=== PATIENT | female | born 1945 | race Caucasian/White ===

== ENCOUNTER → 2016-08-05 | Outpatient (REF) | payer OTHER ==
[2016-08-05 12:42] LABS: BASO # 0.1 K/mm3 (0.0-0.2); EOS # 0.4 K/mm3 (0.0-0.50); EOS % 4.8 % (0.0-3.0); LARGE UNSTAINED CELL # 0.2 K/mm3 (0.0-0.4); LARGE UNSTAINED CELL % 2.6 % (0.0-4.0); LYMPH # 1.4 K/mm3 (1.5-4.5); LYMPH % 19.7 % (24.0-44.0); MEAN CORPUSCULAR HEMOGLOBIN 29.1 pg (27.0-33.0); MEAN CORPUSCULAR HGB CONC 32.8 g/dl (32.0-36.5); MEAN CORPUSCULAR VOLUME 88.8 fl (80.0-96.0); MONO # 0.5 K/mm3 (0.0-0.8); MONO % 6.3 % (0.0-5.0); NEUTROPHILS # 4.8 K/mm3 (1.8-7.7); NEUTROPHILS % 65.6 % (36.0-66.0); PLATELET COUNT, AUTOMATED 189 k/mm3 (150-450); RED CELL DISTRIBUTION WIDTH 13.8 % (11.5-14.5); WHITE BLOOD COUNT 7.3 K/mm3 (4.0-10.0)
[2016-08-05 13:48] LABS: FOLATE 23.8 NG/ML
[2016-08-05 13:53] LABS: ALBUMIN 3.4 GM/DL (3.2-5.2); ALBUMIN/GLOBULIN RATIO 0.87 (1.00-1.93); BILIRUBIN,TOTAL 0.4 MG/DL (0.2-1.0); CALCIUM LEVEL 8.9 MG/DL (8.8-10.2); CREATININE FOR GFR 1.71 MG/DL (0.55-1.02); GLOMERULAR FILTRATION RATE 31.2 (>39); PERCENT SATURATION 39.3 % (13.2-37.4); POTASSIUM SERUM 4.6 MEQ/L (3.5-5.1); TOTAL PROTEIN 7.3 GM/DL (6.4-8.2)
== END ==
LOC: M SFHCADAM 11:22
PROVIDERS: ATTEND Physician Assistant Medical
DX: N18.3 Chronic kidney disease, stage 3 (moderate) (principal); E11.9 Type 2 diabetes mellitus without complications; E78.5 Hyperlipidemia, unspecified; E03.9 Hypothyroidism, unspecified; E55.9 Vitamin D deficiency, unspecified

== ENCOUNTER 2018-01-15 11:04 | Emergency (ER) | payer OTHER ==
[2018-01-15] MEDS: NS 1,000 ML IV ×2 (11:40→12:54)
[2018-01-15 11:41] LABS: HEMATOCRIT 31.6 % (36.0-47.0); HEMOGLOBIN 10.3 g/dl (12.0-15.5); MEAN CORPUSCULAR HEMOGLOBIN 28.9 pg (27.0-33.0); MEAN CORPUSCULAR HGB CONC 32.6 g/dl (32.0-36.5); MEAN CORPUSCULAR VOLUME 88.8 fl (80.0-96.0); PLATELET COUNT, AUTOMATED 211 10^3/uL (150-450); RED BLOOD COUNT 3.56 10^6/uL (4.00-5.40); RED CELL DISTRIBUTION WIDTH 13.1 % (11.5-14.5); WHITE BLOOD COUNT 9.5 10^3/uL (4.0-10.0)
[2018-01-15 11:43] LABS: ADD MANUAL DIFFER YES; DIFF SLIDE NUMBER 221; POSITIVE DIFF POS FLAG; POSITIVE MORPH POS FLAG
[2018-01-15 11:59] LABS: INR 1.15; PROTHROMBIN TIME 14.9 SECONDS (12.1-14.4)
[2018-01-15 12:00] LABS: ANION GAP 13 MEQ/L (8-16); BLOOD UREA NITROGEN 31 MG/DL (7-18); CALCIUM LEVEL 8.7 MG/DL (8.8-10.2); CARBON DIOXIDE LEVEL 20 MEQ/L (21-32); CHLORIDE LEVEL 94 MEQ/L (98-107); CK-MB VALUE MASS 5.9 NG/ML (<3.6); CPK CREATINE PHOSPHOKINASE 94 U/L (26-192); CREATININE FOR GFR 2.05 MG/DL (0.55-1.30); GLOMERULAR FILTRATION RATE 25.2 (>39); MB/CK RELATIVE INDEX 6.27 (< OR =4); PARTIAL THROMBOPLASTIN TIME 27.6 SECONDS (25.4-37.6); POTASSIUM SERUM 4.3 MEQ/L (3.5-5.1); SODIUM LEVEL 127 MEQ/L (136-145)
[2018-01-15 12:02] LABS: GLUCOSE, FASTING 525 MG/DL (70-100); TROPONIN I 1.92 NG/ML (< 0.10)
[2018-01-15 12:09] LABS: ANISOCYTOSIS 1+; BANDS 2 % (< 11); LYMPHOCYTES 1 % (16-52); MONOCYTES 3 % (0-8); NEUTROPHILS 94 % (35-75); PLATELET ESTIMATE NORMAL (NORMAL)
[2018-01-15] MEDS ORDERED: HumuLIN R (REGULAR) INSULIN (NovoLIN R) **100U/ML** PER UNIT As Ordered (12:31)
[2018-01-15] MEDS: HumuLIN R (REGULAR) INSULIN (NovoLIN R) **100U/ML** PER UNIT IV (12:32)
[2018-01-15] MEDS ORDERED: HEPARIN 25,000 UNITS/250 ML D5W BAG (100 UNITS/ML) As Ordered (12:46)
[2018-01-15] MEDS ORDERED: HEPARIN SOD (PORCINE) 5000 UNITS/ML VIAL As Ordered (12:46)
[2018-01-15] MEDS: CLOPIDOGREL 300 MG TAB (PLAVIX) PO (12:52)
[2018-01-15] MEDS: HEPARIN SOD (PORCINE) 5000 UNITS/ML VIAL IV (12:52)
[2018-01-15] MEDS: HEPARIN DRIP 25,000 UNITS in APPROPRIATE DILUENT 1 EA IV (12:52)
[2018-01-15 13:50] LABS: BEDSIDE GLUCOSE 388 MG/DL (83-110)
== END 2018-01-15 13:51 | disposition short-term general hospital (02) ==
LOC: M ED 11:04
DX: I21.4 Non-ST elevation (NSTEMI) myocardial infarction (principal); N18.3 Chronic kidney disease, stage 3 (moderate); I95.9 Hypotension, unspecified; R53.1 Weakness; E11.22 Type 2 diabetes mellitus with diabetic chronic kidney disease; I12.9 Hypertensive chronic kidney disease with stage 1 through stage 4 chronic kidney disease, or unspecified chronic kidney disease; E78.5 Hyperlipidemia, unspecified; Z86.79 Personal history of other diseases of the circulatory system; D63.1 Anemia in chronic kidney disease; D50.9 Iron deficiency anemia, unspecified; Z79.899 Other long term (current) drug therapy
CPT/HCPCS: 71045

== ENCOUNTER → 2018-02-02 | Outpatient (REF) | payer OTHER ==
[2018-02-04 10:01] LABS: ANION GAP 9 MEQ/L (8-16); BLOOD UREA NITROGEN 17 MG/DL (7-18); CALCIUM LEVEL 8.4 MG/DL (8.8-10.2); CARBON DIOXIDE LEVEL 23 MEQ/L (21-32); CHLORIDE LEVEL 108 MEQ/L (98-107); CREATININE FOR GFR 1.07 MG/DL (0.55-1.30); GLOMERULAR FILTRATION RATE 53.4 (>39); GLUCOSE, FASTING 157 MG/DL (70-100); POTASSIUM SERUM 4.3 MEQ/L (3.5-5.1); SODIUM LEVEL 140 MEQ/L (136-145)
== END ==
LOC: M LABDRWAD 09:41
DX: N18.3 Chronic kidney disease, stage 3 (moderate) (principal)
CPT/HCPCS: 80048

== ENCOUNTER → 2018-02-17 | Outpatient (REF) | payer OTHER ==
[2018-02-17 19:25] LABS: BASO # 0.1 10^3/uL (0.0-0.2); BASO % 0.6 % (0.0-1.0); EOS # 0.2 10^3/uL (0.0-0.50); EOS % 2.8 % (0.0-3.0); HEMATOCRIT 26.8 % (36.0-47.0); HEMOGLOBIN 8.3 g/dl (12.0-15.5); IMMATURE GRANULOCYTE % 0.5 % (0-3.0); LYMPH # 0.8 10^3/uL (1.5-4.5); LYMPH % 9.4 % (24.0-44.0); MEAN CORPUSCULAR HEMOGLOBIN 28.1 pg (27.0-33.0); MEAN CORPUSCULAR VOLUME 90.8 fl (80.0-96.0); MONO # 0.4 10^3/uL (0.0-0.8); MONO % 4.8 % (0.0-5.0); NEUTROPHILS # 6.8 10^3/uL (1.8-7.7); NEUTROPHILS % 81.9 % (36.0-66.0); PLATELET COUNT, AUTOMATED 261 10^3/uL (150-450); RED BLOOD COUNT 2.95 10^6/uL (4.00-5.40); RED CELL DISTRIBUTION WIDTH 15.5 % (11.5-14.5); WHITE BLOOD COUNT 8.3 10^3/uL (4.0-10.0)
[2018-02-17 19:54] LABS: ESTIMATED AVERAGE GLUCOSE 280 MG/DL (60-110); HEMOGLOBIN A1c 11.4 %
[2018-02-17 20:18] LABS: ALBUMIN/GLOBULIN RATIO 0.56 (1.00-1.93); ALKALINE PHOSPHATASE 102 U/L (45-117); ALT/SGPT 15 U/L (12-78); ANION GAP 7 MEQ/L (8-16); AST/SGOT 15 U/L (7-37); BILIRUBIN,TOTAL 0.2 MG/DL (0.2-1.0); BLOOD UREA NITROGEN 16 MG/DL (7-18); CALCIUM LEVEL 8.2 MG/DL (8.8-10.2); CARBON DIOXIDE LEVEL 25 MEQ/L (21-32); CHLORIDE LEVEL 112 MEQ/L (98-107); CREATININE FOR GFR 0.98 MG/DL (0.55-1.30); GLOMERULAR FILTRATION RATE 59.1 (>39); GLUCOSE, FASTING 134 MG/DL (70-100); POTASSIUM SERUM 3.6 MEQ/L (3.5-5.1); SODIUM LEVEL 144 MEQ/L (136-145); TOTAL PROTEIN 5.6 GM/DL (6.4-8.2)
== END ==
LOC: M SFHCADAM 11:41
DX: E11.22 Type 2 diabetes mellitus with diabetic chronic kidney disease (principal); N18.3 Chronic kidney disease, stage 3 (moderate); D63.8 Anemia in other chronic diseases classified elsewhere; E03.9 Hypothyroidism, unspecified
CPT/HCPCS: 84443

== ENCOUNTER → 2018-02-26 | Outpatient (REF) | payer OTHER ==
[2018-02-26 14:24] LABS: BASO # 0.1 10^3/uL (0.0-0.2); BASO % 0.7 % (0.0-1.0); EOS # 0.5 10^3/uL (0.0-0.50); EOS % 5.5 % (0.0-3.0); HEMATOCRIT 29.1 % (36.0-47.0); HEMOGLOBIN 9.2 g/dl (12.0-15.5); IMMATURE GRANULOCYTE % 0.2 % (0-3.0); LYMPH % 11.9 % (24.0-44.0); MEAN CORPUSCULAR HGB CONC 31.6 g/dl (32.0-36.5); MEAN CORPUSCULAR VOLUME 88.4 fl (80.0-96.0); MONO # 0.6 10^3/uL (0.0-0.8); NEUTROPHILS # 6.2 10^3/uL (1.8-7.7); NEUTROPHILS % 74.7 % (36.0-66.0); PLATELET COUNT, AUTOMATED 248 10^3/uL (150-450); RED BLOOD COUNT 3.29 10^6/uL (4.00-5.40); RED CELL DISTRIBUTION WIDTH 15.7 % (11.5-14.5); WHITE BLOOD COUNT 8.2 10^3/uL (4.0-10.0)
[2018-02-26 15:09] LABS: ALBUMIN 2.1 GM/DL (3.2-5.2); ALBUMIN/GLOBULIN RATIO 0.58 (1.00-1.93); ALKALINE PHOSPHATASE 105 U/L (45-117); ALT/SGPT 15 U/L (12-78); ANION GAP 9 MEQ/L (8-16); AST/SGOT 18 U/L (7-37); BILIRUBIN,TOTAL 0.2 MG/DL (0.2-1.0); BLOOD UREA NITROGEN 19 MG/DL (7-18); CALCIUM LEVEL 7.9 MG/DL (8.8-10.2); CARBON DIOXIDE LEVEL 28 MEQ/L (21-32); CHLORIDE LEVEL 105 MEQ/L (98-107); CREATININE FOR GFR 1.03 MG/DL (0.55-1.30); GLOMERULAR FILTRATION RATE 55.8 (>39); GLUCOSE, FASTING 161 MG/DL (70-100); MAGNESIUM LEVEL 1.2 MG/DL (1.8-2.4); NT-PRO BNP 2333 PG/ML (<125); POTASSIUM SERUM 3.7 MEQ/L (3.5-5.1); SODIUM LEVEL 142 MEQ/L (136-145); TOTAL PROTEIN 5.7 GM/DL (6.4-8.2)
== END ==
LOC: M LAB REF 12:39
DX: D50.0 Iron deficiency anemia secondary to blood loss (chronic) (principal); I50.42 Chronic combined systolic (congestive) and diastolic (congestive) heart failure; I11.0 Hypertensive heart disease with heart failure; R94.31 Abnormal electrocardiogram [ECG] [EKG]
CPT/HCPCS: 83735

== ENCOUNTER → 2018-04-06 | Outpatient (CLI) | payer OTHER | LOC: M RAD 12:49 | DX: N13.2 Hydronephrosis with renal and ureteral calculous obstruction (principal); N28.1 Cyst of kidney, acquired | CPT/HCPCS: 76775 ==

== ENCOUNTER 2018-05-01 10:58 | Inpatient (IN) | payer OTHER ==
[2018-05-01 12:00] LABS: HEMATOCRIT 29.4 % (36.0-47.0); HEMOGLOBIN 9.5 g/dl (12.0-15.5); MEAN CORPUSCULAR HEMOGLOBIN 27.9 pg (27.0-33.0); MEAN CORPUSCULAR HGB CONC 32.3 g/dl (32.0-36.5); MEAN CORPUSCULAR VOLUME 86.2 fl (80.0-96.0); PLATELET COUNT, AUTOMATED 356 10^3/uL (150-450); RED BLOOD COUNT 3.41 10^6/uL (4.00-5.40); RED CELL DISTRIBUTION WIDTH 15.5 % (11.5-14.5); WHITE BLOOD COUNT 11.1 10^3/uL (4.0-10.0)
[2018-05-01] MEDS: NS 500 ML IV ×2 (12:00→12:43)
[2018-05-01 12:05] LABS: ADD MANUAL DIFFER YES; DIFF SLIDE NUMBER 219; POSITIVE MORPH POS FLAG
[2018-05-01 12:12] LABS: BLOOD UREA NITROGEN 85 MG/DL (7-18); CREATININE FOR GFR 2.72 MG/DL (0.55-1.30); GLOMERULAR FILTRATION RATE 18.2 (>39); GLUCOSE, FASTING 168 MG/DL (70-100)
[2018-05-01 12:13] LABS: ALBUMIN 2.2 GM/DL (3.2-5.2); ALBUMIN/GLOBULIN RATIO 0.54 (1.00-1.93); ALKALINE PHOSPHATASE 92 U/L (45-117); ALT/SGPT 36 U/L (12-78); ANION GAP 20 MEQ/L (8-16); AST/SGOT 51 U/L (7-37); BILIRUBIN,DIRECT 0.2 MG/DL (0.0-0.2); BILIRUBIN,TOTAL 0.4 MG/DL (0.2-1.0); CALCIUM LEVEL 7.3 MG/DL (8.8-10.2); CARBON DIOXIDE LEVEL 21 MEQ/L (21-32); CHLORIDE LEVEL 96 MEQ/L (98-107); LIPASE 162 U/L (73-393); POTASSIUM SERUM 4.6 MEQ/L (3.5-5.1); SODIUM LEVEL 137 MEQ/L (136-145); TOTAL PROTEIN 6.3 GM/DL (6.4-8.2)
[2018-05-01 12:37] LABS: ATYPICAL LYMPH 4 % (0-5); BANDS 49 % (< 11); METAMYELOCYTES 1 % (0-0); MONOCYTES 15 % (0-8); NEUTROPHILS 31 % (35-75); PLATELET ESTIMATE NORMAL (NORMAL)
[2018-05-01 12:39] LABS: TOXIC VACUOLATION 1+
[2018-05-01 12:40] LABS: TOXIC GRANULATION 1+
[2018-05-01] MEDS: DILUENT IV (13:00)
[2018-05-01] MEDS: NS IV (13:00)
[2018-05-01 13:27] LABS: INR 1.12; PARTIAL THROMBOPLASTIN TIME 27.5 SECONDS (25.4-37.6); PROTHROMBIN TIME 14.5 SECONDS (12.1-14.4)
[2018-05-01 13:35] LABS: AMYLASE 90 U/L (25-115); CPK CREATINE PHOSPHOKINASE 78 U/L (26-192); MB/CK RELATIVE INDEX 8.72 (< OR =4); TROPONIN I < 0.02 NG/ML (< 0.10)
[2018-05-01 13:40] LABS: LACTIC ACID SEPSIS PROTOCOL 2.6 MMOL/L (0.4-2.0)
[2018-05-01] MEDS: ONDANSETRON 4MG/2ML VIAL (J2405) IV (14:01)
[2018-05-01] MEDS: PIPERACILLIN/TAZOBACTAM SOD 4.5 GM in D5W MINI-BAG PLUS 50 ML IV (14:20)
[2018-05-01] MEDS: NS 1,000 ML IV ×3 (14:27→21:33)
[2018-05-01] MEDS ORDERED: METOCLOPRAMIDE INJ 10MG/2ML VIAL (J2765) IV (14:30)
[2018-05-01] MEDS ORDERED: ONDANSETRON 4MG/2ML VIAL (J2405) IV (14:30)
[2018-05-01] MEDS: PANTOPRAZOLE 40MG INJ (PROTONIX) (C9113) IV (18:40)
[2018-05-01] MEDS: metroNIDAZOLE 500 MG in APPROPRIATE DILUENT 1 EA IV ×2 (18:40→23:05)
[2018-05-01] MEDS: PIPERACILLIN/TAZOBACTAM SOD 2.25 GM in D5W MINI-BAG PLUS 50 ML IV (21:07)
[2018-05-01] MEDS: HEPARIN SOD (PORCINE) 5000 UNITS/ML VIAL SC (21:07)
[2018-05-02] MEDS: MORPHINE 4 MG/ML 1ML VIAL/SYRINGE (J2270) IV (03:28)
[2018-05-02 04:48] LABS: HEMATOCRIT 29.1 % (36.0-47.0); HEMOGLOBIN 9.2 g/dl (12.0-15.5); MEAN CORPUSCULAR HEMOGLOBIN 27.7 pg (27.0-33.0); MEAN CORPUSCULAR HGB CONC 31.6 g/dl (32.0-36.5); MEAN CORPUSCULAR VOLUME 87.7 fl (80.0-96.0); PLATELET COUNT, AUTOMATED 280 10^3/uL (150-450); RED BLOOD COUNT 3.32 10^6/uL (4.00-5.40); RED CELL DISTRIBUTION WIDTH 15.6 % (11.5-14.5)
[2018-05-02 05:16] LABS: ALBUMIN 1.9 GM/DL (3.2-5.2); ALBUMIN/GLOBULIN RATIO 0.51 (1.00-1.93); ALKALINE PHOSPHATASE 76 U/L (45-117); ALT/SGPT 38 U/L (12-78); ANION GAP 19 MEQ/L (8-16); AST/SGOT 63 U/L (7-37); BILIRUBIN,TOTAL 0.4 MG/DL (0.2-1.0); BLOOD UREA NITROGEN 98 MG/DL (7-18); CALCIUM LEVEL 6.4 MG/DL (8.8-10.2); CARBON DIOXIDE LEVEL 16 MEQ/L (21-32); CHLORIDE LEVEL 105 MEQ/L (98-107); CREATININE FOR GFR 2.91 MG/DL (0.55-1.30); GLOMERULAR FILTRATION RATE 16.8 (>39); GLUCOSE, FASTING 148 MG/DL (70-100); SODIUM LEVEL 140 MEQ/L (136-145); TOTAL PROTEIN 5.6 GM/DL (6.4-8.2)
[2018-05-02] MEDS: HEPARIN SOD (PORCINE) 5000 UNITS/ML VIAL SC ×3 (05:47→21:13)
[2018-05-02] MEDS: PIPERACILLIN/TAZOBACTAM SOD 2.25 GM in D5W MINI-BAG PLUS 50 ML IV ×3 (05:48→21:13)
[2018-05-02] MEDS: NS 1,000 ML IV ×6 (06:20→22:30)
[2018-05-02] MEDS: metroNIDAZOLE 500 MG in APPROPRIATE DILUENT 1 EA IV (07:47)
[2018-05-02] MEDS: PANTOPRAZOLE 40MG INJ (PROTONIX) (C9113) IV (10:13)
[2018-05-02] MEDS: NYSTATIN 100,000 UNITS/GM TOPICAL PWD 15 GM TOP ×2 (10:17→21:13)
[2018-05-02] MEDS: CALCIUM GLUCONATE 1,000 MG in D5W MINI-BAG PLUS 100 ML IV (12:15)
[2018-05-02] MEDS ORDERED: GLUCAGON FOR INJ 1 MG VIAL (J1610) SC (13:30)
[2018-05-02] MEDS ORDERED: GLUCOSE 4 GM CHEW TABLET PO (13:30)
[2018-05-02 14:40] LABS: BEDSIDE GLUCOSE 137 MG/DL (83-110)
[2018-05-02] MEDS: HumaLOG INSULIN (NovoLOG) PER UNIT SC ×2 (14:50→18:00)
[2018-05-02] MEDS: ACETAMINOPHEN 500 MG TAB PO (15:00)
[2018-05-02] MEDS ORDERED: SODIUM CHLORIDE 0.9% 1000ML IV (16:45)
[2018-05-02 18:06] LABS: BEDSIDE GLUCOSE 81 MG/DL (83-110)
[2018-05-02 23:51] LABS: BEDSIDE GLUCOSE 62 MG/DL (83-110)
[2018-05-03] MEDS: NS 1,000 ML IV (00:12)
[2018-05-03 01:40] LABS: BEDSIDE GLUCOSE 72 MG/DL (83-110)
[2018-05-03 04:40] LABS: HEMATOCRIT 26.9 % (36.0-47.0); HEMOGLOBIN 8.3 g/dl (12.0-15.5); MEAN CORPUSCULAR HGB CONC 30.9 g/dl (32.0-36.5); MEAN CORPUSCULAR VOLUME 87.6 fl (80.0-96.0); PLATELET COUNT, AUTOMATED 235 10^3/uL (150-450); RED BLOOD COUNT 3.07 10^6/uL (4.00-5.40); RED CELL DISTRIBUTION WIDTH 15.3 % (11.5-14.5); WHITE BLOOD COUNT 8.6 10^3/uL (4.0-10.0)
[2018-05-03 04:44] LABS: ADD MANUAL DIFFER YES; DIFF SLIDE NUMBER 52; POSITIVE MORPH POS FLAG
[2018-05-03 04:45] LABS: IONIZED CALCIUM 3.3 MG/DL (4.5-5.3)
[2018-05-03 05:10] LABS: ALBUMIN 1.6 GM/DL (3.2-5.2); ANION GAP 15 MEQ/L (8-16); BLOOD UREA NITROGEN 85 MG/DL (7-18); CALCIUM LEVEL 5.2 MG/DL (8.8-10.2); CARBON DIOXIDE LEVEL 17 MEQ/L (21-32); CHLORIDE LEVEL 115 MEQ/L (98-107); CREATININE FOR GFR 2.65 MG/DL (0.55-1.30); GLOMERULAR FILTRATION RATE 18.7 (>39); GLUCOSE, FASTING 61 MG/DL (70-100); PHOSPHORUS LEVEL 3.9 MG/DL (2.5-4.9); SODIUM LEVEL 147 MEQ/L (136-145)
[2018-05-03 05:13] LABS: BANDS 4 % (< 11); LYMPHOCYTES 7 % (16-52); METAMYELOCYTES 1 % (0-0); MONOCYTES 5 % (0-8); NEUTROPHILS 83 % (35-75)
[2018-05-03 05:14] LABS: PLATELET ESTIMATE NORMAL (NORMAL)
[2018-05-03 05:15] LABS: ANISOCYTOSIS 1+; CRENATED RBC 1+
[2018-05-03 05:16] LABS: TOXIC GRANULATION 1+
[2018-05-03] MEDS: HumaLOG INSULIN (NovoLOG) PER UNIT SC ×3 (06:00→12:00)
[2018-05-03] MEDS: MAG SULF 1GM/100ML (MAG RUN) 1 GM in APPROPRIATE DILUENT 1 EA IV ×3 (06:09→13:31)
[2018-05-03] MEDS: HEPARIN SOD (PORCINE) 5000 UNITS/ML VIAL SC ×3 (06:09→20:32)
[2018-05-03] MEDS: LR 1,000 ML IV ×3 (06:09→20:31)
[2018-05-03] MEDS: PIPERACILLIN/TAZOBACTAM SOD 2.25 GM in D5W MINI-BAG PLUS 50 ML IV ×3 (06:10→21:47)
[2018-05-03] MEDS: CALCIUM GLUCONATE 1,000 MG in D5W MINI-BAG PLUS 100 ML IV ×3 (06:10→20:31)
[2018-05-03] MEDS: KCL 10MEQ/100ML SWI (KRUN) 10 MEQ in APPROPRIATE DILUENT 1 EA IV ×7 (06:50→15:14)
[2018-05-03] MEDS: ACETAMINOPHEN 500 MG TAB PO ×2 (07:54→22:47)
[2018-05-03] MEDS: NYSTATIN 100,000 UNITS/GM TOPICAL PWD 15 GM TOP ×2 (08:58→20:31)
[2018-05-03] MEDS: PANTOPRAZOLE 40MG INJ (PROTONIX) (C9113) IV (08:58)
[2018-05-03] MEDS: DEXTROSE 50% 50 ML SYRINGE IV ×2 (10:18→20:31)
[2018-05-03 10:24] LABS: BEDSIDE GLUCOSE 68 MG/DL (83-110)
[2018-05-03 12:07] LABS: BEDSIDE GLUCOSE 124 MG/DL (83-110)
[2018-05-03 12:09] LABS: IONIZED CALCIUM 3.6 MG/DL (4.5-5.3)
[2018-05-03] MEDS: CHLORASEPTIC SPRAY MT ×2 (12:18→22:49)
[2018-05-03 12:43] LABS: ALBUMIN 1.5 GM/DL (3.2-5.2); ANION GAP 13 MEQ/L (8-16); BLOOD UREA NITROGEN 77 MG/DL (7-18); CALCIUM LEVEL 5.5 MG/DL (8.8-10.2); CARBON DIOXIDE LEVEL 17 MEQ/L (21-32); CHLORIDE LEVEL 114 MEQ/L (98-107); CREATININE FOR GFR 2.47 MG/DL (0.55-1.30); GLOMERULAR FILTRATION RATE 20.3 (>39); GLUCOSE, FASTING 123 MG/DL (70-100); MAGNESIUM LEVEL 1.6 MG/DL (1.8-2.4); PHOSPHORUS LEVEL 2.9 MG/DL (2.5-4.9); POTASSIUM SERUM 3.4 MEQ/L (3.5-5.1); SODIUM LEVEL 144 MEQ/L (136-145)
[2018-05-03] MEDS ORDERED: MAG SULF 1GM/100ML (MAG RUN) 1 GM in APPROPRIATE DILUENT 1 EA IV (13:00)
[2018-05-03] MEDS: POTASSIUM CHLORIDE 10% LIQ 20 MEQ/15 ML UDC PO (14:11)
[2018-05-03 18:04] LABS: BEDSIDE GLUCOSE 81 MG/DL (83-110)
[2018-05-03 18:28] LABS: IONIZED CALCIUM 3.6 MG/DL (4.5-5.3)
[2018-05-03 19:43] LABS: ALBUMIN 1.7 GM/DL (3.2-5.2); ANION GAP 12 MEQ/L (8-16); BLOOD UREA NITROGEN 72 MG/DL (7-18); CALCIUM LEVEL 6.4 MG/DL (8.8-10.2); CARBON DIOXIDE LEVEL 15 MEQ/L (21-32); CHLORIDE LEVEL 117 MEQ/L (98-107); CREATININE FOR GFR 2.34 MG/DL (0.55-1.30); GLOMERULAR FILTRATION RATE 21.6 (>39); GLUCOSE, FASTING 83 MG/DL (70-100); MAGNESIUM LEVEL 1.9 MG/DL (1.8-2.4); PHOSPHORUS LEVEL 2.5 MG/DL (2.5-4.9); POTASSIUM SERUM 4.4 MEQ/L (3.5-5.1); SODIUM LEVEL 144 MEQ/L (136-145)
[2018-05-03 20:31] LABS: BEDSIDE GLUCOSE 69 MG/DL (83-110)
[2018-05-03 21:52] LABS: BEDSIDE GLUCOSE 121 MG/DL (83-110)
[2018-05-04 00:43] LABS: BEDSIDE GLUCOSE 97 MG/DL (83-110)
[2018-05-04] MEDS: LR 1,000 ML IV (02:28)
[2018-05-04 04:15] LABS: IONIZED CALCIUM 4.2 MG/DL (4.5-5.3)
[2018-05-04 04:15] LABS: HEMATOCRIT 26.3 % (36.0-47.0); HEMOGLOBIN 8.1 g/dl (12.0-15.5); MEAN CORPUSCULAR HEMOGLOBIN 26.9 pg (27.0-33.0); MEAN CORPUSCULAR HGB CONC 30.8 g/dl (32.0-36.5); MEAN CORPUSCULAR VOLUME 87.4 fl (80.0-96.0); PLATELET COUNT, AUTOMATED 195 10^3/uL (150-450); RED BLOOD COUNT 3.01 10^6/uL (4.00-5.40); RED CELL DISTRIBUTION WIDTH 15.2 % (11.5-14.5); WHITE BLOOD COUNT 7.3 10^3/uL (4.0-10.0)
[2018-05-04 04:23] LABS: ADD MANUAL DIFFER YES; DIFF SLIDE NUMBER 41; POSITIVE MORPH POS FLAG
[2018-05-04 04:51] LABS: EOSINOPHILS 1 % (0-5); LYMPHOCYTES 14 % (16-52); MONOCYTES 3 % (0-8); NEUTROPHILS 82 % (35-75)
[2018-05-04 04:52] LABS: ANISOCYTOSIS 1+; CRENATED RBC 1+; PLATELET ESTIMATE NORMAL (NORMAL)
[2018-05-04 05:14] LABS: ALBUMIN 1.5 GM/DL (3.2-5.2); ANION GAP 9 MEQ/L (8-16); BLOOD UREA NITROGEN 68 MG/DL (7-18); CARBON DIOXIDE LEVEL 18 MEQ/L (21-32); CHLORIDE LEVEL 117 MEQ/L (98-107); CREATININE FOR GFR 2.12 MG/DL (0.55-1.30); GLOMERULAR FILTRATION RATE 24.2 (>39); GLUCOSE, FASTING 74 MG/DL (70-100); MAGNESIUM LEVEL 1.6 MG/DL (1.8-2.4); PHOSPHORUS LEVEL 2.3 MG/DL (2.5-4.9); POTASSIUM SERUM 3.8 MEQ/L (3.5-5.1); SODIUM LEVEL 144 MEQ/L (136-145)
[2018-05-04 05:39] LABS: BEDSIDE GLUCOSE 72 MG/DL (83-110)
[2018-05-04] MEDS: ACETAMINOPHEN 500 MG TAB PO ×2 (05:41→21:26)
[2018-05-04] MEDS: PIPERACILLIN/TAZOBACTAM SOD 2.25 GM in D5W MINI-BAG PLUS 50 ML IV ×3 (05:41→21:26)
[2018-05-04] MEDS: HEPARIN SOD (PORCINE) 5000 UNITS/ML VIAL SC ×3 (05:42→21:25)
[2018-05-04] MEDS: MORPHINE 4 MG/ML 1ML VIAL/SYRINGE (J2270) IV (08:01)
[2018-05-04] MEDS: D5W/LR 1,000 ML IV ×2 (08:48→17:01)
[2018-05-04] MEDS: PANTOPRAZOLE 40MG INJ (PROTONIX) (C9113) IV (08:48)
[2018-05-04] MEDS: MAG SULF 1GM/100ML (MAG RUN) 1 GM in APPROPRIATE DILUENT 1 EA IV (08:49)
[2018-05-04] MEDS: NYSTATIN 100,000 UNITS/GM TOPICAL PWD 15 GM TOP ×2 (08:50→21:25)
[2018-05-04] MEDS: CALCIUM GLUCONATE 1,000 MG in D5W MINI-BAG PLUS 100 ML IV (08:50)
[2018-05-04 09:16] LABS: TROPONIN I 0.03 NG/ML (< 0.10)
[2018-05-04] MEDS: POTASSIUM CHLORIDE 10% LIQ 20 MEQ/15 ML UDC PO (09:21)
[2018-05-04 09:48] LABS: BEDSIDE GLUCOSE 110 MG/DL (83-110)
[2018-05-04 11:17] LABS: NT-PRO BNP 3755 PG/ML (<125)
[2018-05-04 11:17] LABS: FERRITIN 661 NG/ML (8-252); IRON (FE) 42 UG/DL (50-170); PERCENT SATURATION 27.5 % (13.2-45.0); TOTAL IRON BINDING CAPACITY 153 UG/DL (250-450)
[2018-05-04 12:00] LABS: FOLATE 18.3 NG/ML (>5.4)
[2018-05-04 12:09] LABS: BEDSIDE GLUCOSE 138 MG/DL (83-110)
[2018-05-04] MEDS ORDERED: E-Z-PAQUE 96% w/w SUSP 176GM BTL As Ordered (13:29)
[2018-05-04] MEDS ORDERED: E-Z-HD 98% w/w 340GM SUSP BTL As Ordered (13:29)
[2018-05-04] MEDS ORDERED: E-Z-GAS II EFFERVESCENT PACKET (SODIUM BICARB./CITRIC ACID/SIMETHICONE) As Ordered (13:29)
[2018-05-04] MEDS ORDERED: GASTROGRAFIN SOLUTION 30ML (Q9963) As Ordered ×2 (13:45→13:46)
[2018-05-04 14:41] LABS: GOLD SPEC TUBE RECIEVED
[2018-05-04 18:07] LABS: BEDSIDE GLUCOSE 100 MG/DL (83-110)
[2018-05-04 21:26] LABS: BEDSIDE GLUCOSE 153 MG/DL (83-110)
[2018-05-05 00:37] LABS: BEDSIDE GLUCOSE 150 MG/DL (83-110)
[2018-05-05 05:20] LABS: HEMATOCRIT 30.5 % (36.0-47.0); HEMOGLOBIN 9.3 g/dl (12.0-15.5); MEAN CORPUSCULAR HEMOGLOBIN 26.9 pg (27.0-33.0); MEAN CORPUSCULAR HGB CONC 30.5 g/dl (32.0-36.5); MEAN CORPUSCULAR VOLUME 88.2 fl (80.0-96.0); PLATELET COUNT, AUTOMATED 241 10^3/uL (150-450); RED BLOOD COUNT 3.46 10^6/uL (4.00-5.40); RED CELL DISTRIBUTION WIDTH 15.4 % (11.5-14.5); WHITE BLOOD COUNT 7.3 10^3/uL (4.0-10.0)
[2018-05-05 05:22] LABS: ADD MANUAL DIFFER YES; DIFF SLIDE NUMBER 20; POSITIVE MORPH POS FLAG
[2018-05-05 05:35] LABS: IONIZED CALCIUM 4.6 MG/DL (4.5-5.3)
[2018-05-05 05:39] LABS: MAGNESIUM LEVEL 2.1 MG/DL (1.8-2.4)
[2018-05-05 05:44] LABS: ALBUMIN 1.8 GM/DL (3.2-5.2); ANION GAP 10 MEQ/L (8-16); BLOOD UREA NITROGEN 53 MG/DL (7-18); CALCIUM LEVEL 7.7 MG/DL (8.8-10.2); CARBON DIOXIDE LEVEL 17 MEQ/L (21-32); CHLORIDE LEVEL 117 MEQ/L (98-107); CREATININE FOR GFR 1.85 MG/DL (0.55-1.30); GLOMERULAR FILTRATION RATE 28.4 (>39); GLUCOSE, FASTING 129 MG/DL (70-100); PHOSPHORUS LEVEL 2.6 MG/DL (2.5-4.9); POTASSIUM SERUM 4.1 MEQ/L (3.5-5.1); SODIUM LEVEL 144 MEQ/L (136-145)
[2018-05-05] MEDS: PIPERACILLIN/TAZOBACTAM SOD 2.25 GM in D5W MINI-BAG PLUS 50 ML IV ×3 (05:44→21:09)
[2018-05-05] MEDS: HEPARIN SOD (PORCINE) 5000 UNITS/ML VIAL SC ×3 (05:45→21:10)
[2018-05-05 05:49] LABS: BEDSIDE GLUCOSE 165 MG/DL (83-110)
[2018-05-05 06:09] LABS: ATYPICAL LYMPH 2 % (0-5); EOSINOPHILS 1 % (0-5); LYMPHOCYTES 18 % (16-52); MONOCYTES 10 % (0-8); NEUTROPHILS 69 % (35-75)
[2018-05-05 06:10] LABS: PLATELET ESTIMATE NORMAL (NORMAL)
[2018-05-05] MEDS: NYSTATIN 100,000 UNITS/GM TOPICAL PWD 15 GM TOP ×2 (10:07→21:10)
[2018-05-05] MEDS: PANTOPRAZOLE 40MG TAB (PROTONIX) PO (10:07)
[2018-05-05] MEDS: CARVedilol 6.25 MG TAB PO ×2 (10:07→19:43)
[2018-05-05] MEDS: MORPHINE 4 MG/ML 1ML VIAL/SYRINGE (J2270) IV (22:06)
[2018-05-06] MEDS: CARVedilol 6.25 MG TAB PO ×4 (00:30→18:00)
[2018-05-06 05:01] LABS: HEMATOCRIT 26.4 % (36.0-47.0); MEAN CORPUSCULAR HEMOGLOBIN 26.8 pg (27.0-33.0); MEAN CORPUSCULAR HGB CONC 30.3 g/dl (32.0-36.5); MEAN CORPUSCULAR VOLUME 88.6 fl (80.0-96.0); PLATELET COUNT, AUTOMATED 167 10^3/uL (150-450); RED BLOOD COUNT 2.98 10^6/uL (4.00-5.40); RED CELL DISTRIBUTION WIDTH 15.3 % (11.5-14.5); WHITE BLOOD COUNT 5.8 10^3/uL (4.0-10.0)
[2018-05-06] MEDS: HEPARIN SOD (PORCINE) 5000 UNITS/ML VIAL SC ×3 (05:11→21:28)
[2018-05-06] MEDS: PIPERACILLIN/TAZOBACTAM SOD 2.25 GM in D5W MINI-BAG PLUS 50 ML IV (05:11)
[2018-05-06 05:22] LABS: POSITIVE MORPH POS FLAG
[2018-05-06 05:23] LABS: ADD MANUAL DIFFER YES; DIFF SLIDE NUMBER 12
[2018-05-06 05:33] LABS: ALBUMIN 1.6 GM/DL (3.2-5.2); ANION GAP 6 MEQ/L (8-16); BLOOD UREA NITROGEN 44 MG/DL (7-18); CALCIUM LEVEL 7.6 MG/DL (8.8-10.2); CARBON DIOXIDE LEVEL 19 MEQ/L (21-32); CHLORIDE LEVEL 117 MEQ/L (98-107); CREATININE FOR GFR 1.56 MG/DL (0.55-1.30); GLOMERULAR FILTRATION RATE 34.5 (>39); GLUCOSE, FASTING 117 MG/DL (70-100); MAGNESIUM LEVEL 1.6 MG/DL (1.8-2.4); PHOSPHORUS LEVEL 2.5 MG/DL (2.5-4.9); POTASSIUM SERUM 4.2 MEQ/L (3.5-5.1); SODIUM LEVEL 142 MEQ/L (136-145)
[2018-05-06 06:01] LABS: EOSINOPHILS 1 % (0-5); LYMPHOCYTES 20 % (16-52); MONOCYTES 10 % (0-8); NEUTROPHILS 69 % (35-75); PLATELET ESTIMATE NORMAL (NORMAL)
[2018-05-06] MEDS: NYSTATIN 100,000 UNITS/GM TOPICAL PWD 15 GM TOP ×2 (08:07→21:28)
[2018-05-06] MEDS: PANTOPRAZOLE 40MG TAB (PROTONIX) PO (08:07)
[2018-05-06] MEDS: MAGNESIUM OXIDE 400 MG TAB (MAG-OX) PO ×2 (11:21→21:28)
[2018-05-06] MEDS: MAG SULF 1GM/100ML (MAG RUN) 1 GM in APPROPRIATE DILUENT 1 EA IV ×2 (12:40→12:49)
[2018-05-06] MEDS: ACETAMINOPHEN 500 MG TAB PO (12:42)
[2018-05-06] MEDS: CEFUROXIME 250 MG TAB PO ×2 (12:49→21:28)
[2018-05-06] MEDS: metroNIDAZOLE (FLAGYL) 500 MG TAB PO ×2 (13:48→21:28)
[2018-05-07 04:58] LABS: BASO % 0.2 % (0.0-1.0); EOS # 0.1 10^3/uL (0.0-0.50); EOS % 1.2 % (0.0-3.0); HEMATOCRIT 28.4 % (36.0-47.0); HEMOGLOBIN 8.9 g/dl (12.0-15.5); IMMATURE GRANULOCYTE % 2.1 % (0-3.0); LYMPH % 10.1 % (24.0-44.0); MEAN CORPUSCULAR HGB CONC 31.3 g/dl (32.0-36.5); MEAN CORPUSCULAR VOLUME 86.1 fl (80.0-96.0); MONO # 0.5 10^3/uL (0.0-0.8); MONO % 5.3 % (0.0-5.0); NEUTROPHILS # 7.8 10^3/uL (1.8-7.7); NEUTROPHILS % 81.1 % (36.0-66.0); PLATELET COUNT, AUTOMATED 182 10^3/uL (150-450); RED CELL DISTRIBUTION WIDTH 15.2 % (11.5-14.5); WHITE BLOOD COUNT 9.6 10^3/uL (4.0-10.0)
[2018-05-07 05:24] LABS: ALBUMIN 1.6 GM/DL (3.2-5.2); ANION GAP 8 MEQ/L (8-16); BLOOD UREA NITROGEN 36 MG/DL (7-18); CALCIUM LEVEL 7.5 MG/DL (8.8-10.2); CARBON DIOXIDE LEVEL 18 MEQ/L (21-32); CHLORIDE LEVEL 115 MEQ/L (98-107); CREATININE FOR GFR 1.45 MG/DL (0.55-1.30); GLOMERULAR FILTRATION RATE 37.6 (>39); GLUCOSE, FASTING 148 MG/DL (70-100); PHOSPHORUS LEVEL 2.5 MG/DL (2.5-4.9); POTASSIUM SERUM 3.8 MEQ/L (3.5-5.1); SODIUM LEVEL 141 MEQ/L (136-145)
[2018-05-07] MEDS: CARVedilol 6.25 MG TAB PO ×3 (06:00→11:14)
[2018-05-07] MEDS: HEPARIN SOD (PORCINE) 5000 UNITS/ML VIAL SC (06:31)
[2018-05-07] MEDS: metroNIDAZOLE (FLAGYL) 500 MG TAB PO (06:32)
[2018-05-07] MEDS: NYSTATIN 100,000 UNITS/GM TOPICAL PWD 15 GM TOP (08:45)
[2018-05-07] MEDS: MAGNESIUM OXIDE 400 MG TAB (MAG-OX) PO (08:45)
[2018-05-07] MEDS: TORSEMIDE 20 MG TAB PO (08:45)
[2018-05-07] MEDS: PANTOPRAZOLE 40MG TAB (PROTONIX) PO (08:45)
[2018-05-07] MEDS: SPIRONOLACTONE 25 MG TAB PO (08:45)
[2018-05-07] MEDS: CEFUROXIME 250 MG TAB PO (08:45)
[2018-05-07] MEDS: FLUBLOK(EGG FREE)(QUAD)INFLUENZA VACC 0.5ML SYRINGE (90682)18YRS&OLDER IM (10:26)
== END 2018-05-07 11:40 | disposition home or self-care (01) | DRG 871 ==
LOC: M ED 10:58 → M ED INP 14:27 → M ICU 17:24
DX: A41.9 Sepsis, unspecified organism (principal); N17.0 Acute kidney failure with tubular necrosis; E87.2 Acidosis; K56.609 Unspecified intestinal obstruction, unspecified as to partial versus complete obstruction; E87.1 Hypo-osmolality and hyponatremia; K56.3 Gallstone ileus; K82.3 Fistula of gallbladder; I50.42 Chronic combined systolic (congestive) and diastolic (congestive) heart failure; I13.0 Hypertensive heart and chronic kidney disease with heart failure and stage 1 through stage 4 chronic kidney disease, or unspecified chronic kidney disease; K80.00 Calculus of gallbladder with acute cholecystitis without obstruction; I25.10 Atherosclerotic heart disease of native coronary artery without angina pectoris; E87.8 Other disorders of electrolyte and fluid balance, not elsewhere classified; N26.1 Atrophy of kidney (terminal); D50.9 Iron deficiency anemia, unspecified; K83.8 Other specified diseases of biliary tract; E11.649 Type 2 diabetes mellitus with hypoglycemia without coma; E11.22 Type 2 diabetes mellitus with diabetic chronic kidney disease; N18.3 Chronic kidney disease, stage 3 (moderate); E78.5 Hyperlipidemia, unspecified; E83.51 Hypocalcemia; E03.9 Hypothyroidism, unspecified; K21.9 Gastro-esophageal reflux disease without esophagitis; Z90.710 Acquired absence of both cervix and uterus; Z87.891 Personal history of nicotine dependence; Z79.82 Long term (current) use of aspirin; Z79.891 Long term (current) use of opiate analgesic; I25.2 Old myocardial infarction; Z98.62 Peripheral vascular angioplasty status; Z95.9 Presence of cardiac and vascular implant and graft, unspecified

== ENCOUNTER → 2018-06-23 | Outpatient (REF) | payer OTHER ==
[~2018-06-23] MED LIST: ASPI81TA85 PO; ATOR40TA75 PO; BASA100I SC; CARV12.5 PO; CARV6.25 PO; CEFU1TAB20 PO; DRIS50003 PO; ENTR1TAB7 PO; FENO145T13 PO; FLAG500T PO; HYDR12.55 PO; IRON325T7 PO; LEVO100T5 PO; LISI-538 PO; LOPR1TAB6 PO; MELA3TAB49 PO; NOVOINJ3; PANT40TA3 PO; SPIR-10 PO; TORS20TA2 PO; TORS5TAB2 PO; TRAM50TA2 PO; TYLE500T78 PO; VITMTA PO; ZOFR4TAB16 PO
[2018-06-23 20:52] LABS: FREE T4 1.27 NG/DL (0.76-1.46); THYROID STIMULATING HORMONE 4.76 uIU/ML (0.358-3.740)
== END ==
LOC: M SFHCADAM 11:34
PROVIDERS: ATTEND Physician Assistant Medical
DX: E03.9 Hypothyroidism, unspecified (principal); N18.3 Chronic kidney disease, stage 3 (moderate); E11.22 Type 2 diabetes mellitus with diabetic chronic kidney disease
CPT/HCPCS: 83036; 84439; 84443; G0463

== ENCOUNTER → 2018-10-12 | Outpatient (REF) | payer MEDICARE ==
[2018-10-12 19:57] LABS: BASO # 0.1 10^3/uL (0.0-0.2); BASO % 0.6 % (0.0-1.0); EOS # 0.3 10^3/uL (0.0-0.50); EOS % 3.2 % (0.0-3.0); HEMATOCRIT 32.2 % (36.0-47.0); HEMOGLOBIN 10.4 g/dl (12.0-15.5); LYMPH # 1.4 10^3/uL (1.5-4.5); LYMPH % 14.2 % (24.0-44.0); MEAN CORPUSCULAR HEMOGLOBIN 29.2 pg (27.0-33.0); MEAN CORPUSCULAR HGB CONC 32.3 g/dl (32.0-36.5); MEAN CORPUSCULAR VOLUME 90.4 fl (80.0-96.0); MONO # 0.6 10^3/uL (0.0-0.8); MONO % 5.9 % (0.0-5.0); NEUTROPHILS # 7.5 10^3/uL (1.8-7.7); NEUTROPHILS % 75.7 % (36.0-66.0); PLATELET COUNT, AUTOMATED 167 10^3/uL (150-450); RED BLOOD COUNT 3.56 10^6/uL (4.00-5.40); WHITE BLOOD COUNT 9.9 10^3/uL (4.0-10.0)
[2018-10-12 20:09] LABS: ALBUMIN 3.3 GM/DL (3.2-5.2); BILIRUBIN,TOTAL 0.3 MG/DL (0.2-1.0); CALCIUM LEVEL 9.4 MG/DL (8.8-10.2); CHOLESTEROL RISK RATIO 3.187 (<5); CREATININE FOR GFR 1.34 MG/DL (0.55-1.30); POTASSIUM SERUM 4.2 MEQ/L (3.5-5.1); THYROID STIMULATING HORMONE 5.31 uIU/ML (0.358-3.740)
[2018-10-12 20:21] LABS: HEMOGLOBIN A1c 9.5 %
== END ==
LOC: M SFHCADAM 13:21
PROVIDERS: ATTEND Physician Assistant Medical
DX: N18.3 Chronic kidney disease, stage 3 (moderate) (principal); E11.22 Type 2 diabetes mellitus with diabetic chronic kidney disease

== ENCOUNTER → 2018-12-03 | Outpatient (REF) | payer MEDICARE ==
[~2018-12-03] MED LIST changes: +FERR325T82 PO; -IRON325T7 PO
== END ==
LOC: M SFHCADAM 08:52
PROVIDERS: ATTEND Physician Assistant Medical
DX: E03.9 Hypothyroidism, unspecified (principal)

== ENCOUNTER → 2019-04-06 | Outpatient (REF) | payer MEDICARE ==
[~2019-04-06] MED LIST changes: -FENO145T13 PO; +FENO145T7 PO
[2019-04-06 19:23] LABS: ALBUMIN 3.2 GM/DL (3.2-5.2); BILIRUBIN,TOTAL 0.3 MG/DL (0.2-1.0); CALCIUM LEVEL 9.7 MG/DL (8.8-10.2); CHOLESTEROL RISK RATIO 2.864 (<5); CREATININE FOR GFR 1.37 MG/DL (0.55-1.30); FREE T4 1.19 NG/DL (0.76-1.46); PERCENT SATURATION 91.6 % (13.2-45.0); POTASSIUM SERUM 4.7 MEQ/L (3.5-5.1); THYROID STIMULATING HORMONE 2.94 uIU/ML (0.358-3.740)
[2019-04-06 19:24] LABS: HEMOGLOBIN A1c 10.3 %
== END ==
LOC: M SFHCADAM 13:21
PROVIDERS: ATTEND Physician Assistant Medical
DX: E11.22 Type 2 diabetes mellitus with diabetic chronic kidney disease (principal); E03.9 Hypothyroidism, unspecified; E78.5 Hyperlipidemia, unspecified; D50.9 Iron deficiency anemia, unspecified
CPT/HCPCS: 80053; 80061; 82728; 83036; 83550; 84439; 84443; G0463

== ENCOUNTER → 2020-03-21 | Outpatient (REF) | payer MEDICARE ==
[~2020-03-21] MED LIST changes: -ASPI81TA85 PO; +ASPI81TA86 PO; +PANT40TA29 PO; -PANT40TA3 PO
[2020-03-21 15:40] LABS: BASO # 0.1 10^3/uL (0.0-0.2); EOS # 0.4 10^3/uL (0.0-0.5); EOS % 5.3 % (0.0-3.0); HEMATOCRIT 30.6 % (36.0-47.0); HEMOGLOBIN 9.7 g/dl (12.0-15.5); LYMPH # 1.3 10^3/uL (1.5-5.0); MEAN CORPUSCULAR HEMOGLOBIN 29.6 pg (27.0-33.0); MEAN CORPUSCULAR HGB CONC 31.7 g/dl (32.0-36.5); MEAN CORPUSCULAR VOLUME 93.3 fl (80.0-96.0); MONO # 0.6 10^3/uL (0.0-0.8); MONO % 8.3 % (0.0-5.0); NEUTROPHILS # 4.9 10^3/uL (1.5-8.5); NEUTROPHILS % 66.9 % (36.0-66.0); PLATELET COUNT, AUTOMATED 177 10^3/uL (150-450); RED BLOOD COUNT 3.28 10^6/uL (4.00-5.40); WHITE BLOOD COUNT 7.3 10^3/uL (4.0-10.0)
[2020-03-21 15:53] LABS: HEMOGLOBIN A1c 9.6 %
[2020-03-21 16:17] LABS: ALBUMIN 2.8 GM/DL (3.2-5.2); BILIRUBIN,TOTAL 0.2 MG/DL (0.2-1.0); CALCIUM LEVEL 8.6 MG/DL (8.8-10.2); CHOLESTEROL RISK RATIO 2.457 (<5); CREATININE FOR GFR 1.39 MG/DL (0.55-1.30); GLOMERULAR FILTRATION RATE 39.2 (>39); THYROID STIMULATING HORMONE 4.83 uIU/ML (0.358-3.740); TOTAL PROTEIN 6.1 GM/DL (6.4-8.2)
[2020-03-21 16:19] LABS: CREATININE, URINE 41.6 MG/DL; MALB URINE SIEMENS 12.4 MG/L; MAU/CREAT RATIO 29.8 MCG/MG (0.0-30.0)
== END ==
LOC: M LABDRWAD 13:27
PROVIDERS: ATTEND Physician Assistant Medical
DX: E11.9 Type 2 diabetes mellitus without complications (principal)

== ENCOUNTER → 2021-10-18 | Outpatient (REF) | payer MEDICARE ==
[~2021-10-18] MED LIST changes: -LISI-538 PO; +LISI20TA33 PO
[2021-10-18 12:53] LABS: BASO # 0.1 10^3/uL (0.0-0.2); BASO % 0.6 % (0.0-1.0); EOS # 0.4 10^3/uL (0.0-0.5); EOS % 3.8 % (0.0-3.0); HEMATOCRIT 32.1 % (36.0-47.0); HEMOGLOBIN 10.2 g/dl (12.0-15.5); LYMPH % 10.3 % (24.0-44.0); MEAN CORPUSCULAR HEMOGLOBIN 28.5 pg (27.0-33.0); MEAN CORPUSCULAR HGB CONC 31.8 g/dl (32.0-36.5); MEAN CORPUSCULAR VOLUME 89.7 fl (80.0-96.0); MONO # 0.7 10^3/uL (0.0-0.8); MONO % 7.3 % (2.0-8.0); NEUTROPHILS # 7.2 10^3/uL (1.5-8.5); NEUTROPHILS % 77.5 % (36.0-66.0); PLATELET COUNT, AUTOMATED 153 10^3/uL (150-450); RED BLOOD COUNT 3.58 10^6/uL (4.00-5.40); WHITE BLOOD COUNT 9.3 10^3/uL (4.0-10.0)
[2021-10-18 13:31] LABS: HEMOGLOBIN A1c 8.7 %
[2021-10-18 13:35] LABS: CREATININE, URINE 22.3 MG/DL; MALB URINE SIEMENS 11.4 MG/L; MAU/CREAT RATIO 51.1 MCG/MG (0.0-30.0)
[2021-10-18 13:46] LABS: ALT/SGPT 36 U/L (12-78); BILIRUBIN,TOTAL 0.2 MG/DL (0.2-1.0); BLOOD UREA NITROGEN 65 MG/DL (7-18); CALCIUM LEVEL 9.4 MG/DL (8.8-10.2); CARBON DIOXIDE LEVEL 25 MEQ/L (21-32); CHLORIDE LEVEL 103 MEQ/L (98-107); CHOLESTEROL LEVEL 81 MG/DL (<200); CHOLESTEROL RISK RATIO 2.454 (<5); FERRITIN 28 NG/ML (8-252); FOLATE > 24.0 NG/ML; GLOMERULAR FILTRATION RATE 38.7 (>39); GLUCOSE, FASTING 141 MG/DL (70-100); HDL CHOLESTEROL 33 MG/DL (>40); IRON (FE) 206 UG/DL (50-170); LDL CHOLESTEROL 24 MG/DL (<100); NON-HDL-C 48 MG/DL; PERCENT SATURATION 50.2 % (13.2-45.0); POTASSIUM SERUM 4.6 MEQ/L (3.5-5.1); SODIUM LEVEL 134 MEQ/L (136-145); TOTAL 25(OH) VITAMIN D 45.4 NG/ML (30.0-100.0); TOTAL IRON BINDING CAPACITY 410 UG/DL (250-450); TOTAL PROTEIN 6.5 GM/DL (6.4-8.2); TRIGLYCERIDES LEVEL 122 MG/DL (<150); VITAMIN B12 LEVEL 1649 PG/ML
== END ==
LOC: M SFHCADAM 10:14
PROVIDERS: ATTEND Physician Assistant Medical
DX: E03.9 Hypothyroidism, unspecified (principal); E55.9 Vitamin D deficiency, unspecified; E78.5 Hyperlipidemia, unspecified; E11.22 Type 2 diabetes mellitus with diabetic chronic kidney disease; Z79.899 Other long term (current) drug therapy

== ENCOUNTER → 2022-03-11 | Outpatient (REF) | payer MEDICARE ==
[2022-03-11 18:39] LABS: PERCENT SATURATION 89.2 % (13.2-45.0)
== END ==
LOC: M LAB REF 17:11
PROVIDERS: ATTEND Nurse Practitioner Family
DX: D50.9 Iron deficiency anemia, unspecified (principal)

== ENCOUNTER 2022-03-23 17:43 | Inpatient (IN) | payer MEDICARE ==
[2022-03-23] VITALS (24 sets, daily range): BP systolic 68–125; BP diastolic 40–82
[~2022-03-23] VITALS: Ht 152.4 cm; Wt 59.8 kg
[2022-03-23] MEDS ORDERED: HumuLIN R (REGULAR) INSULIN (NovoLIN R) **100U/ML** PER UNIT IV STA (17:53)
[2022-03-23] MEDS ORDERED: DEXTROSE 50% 50 ML SYRINGE IV STA (17:53)
[2022-03-23] MEDS ORDERED: CALCIUM CHLORIDE 10% 1 GM in D5W 100 ML IV ONE (17:55)
[2022-03-23 18:07] LABS: BASO % 0.3 % (0.0-1.0); EOS # 0.1 10^3/uL (0.0-0.5); EOS % 1.1 % (0.0-3.0); LYMPH # 1.4 10^3/uL (1.5-5.0); LYMPH % 14.5 % (24.0-44.0); MEAN CORPUSCULAR HEMOGLOBIN 28.9 pg (27.0-33.0); MEAN CORPUSCULAR HGB CONC 29.7 g/dl (32.0-36.5); MONO # 0.6 10^3/uL (0.0-0.8); MONO % 6.4 % (2.0-8.0); NEUTROPHILS # 7.2 10^3/uL (1.5-8.5); NEUTROPHILS % 76.4 % (36.0-66.0); PLATELET COUNT, AUTOMATED 270 10^3/uL (150-450); RED BLOOD COUNT 2.01 10^6/uL (4.00-5.40); WHITE BLOOD COUNT 9.4 10^3/uL (4.0-10.0)
[2022-03-23 18:10] LABS: HEMATOCRIT 19.5 % (36.0-47.0)
[2022-03-23] MEDS ORDERED: NS 500 ML IV ONE ×2 (18:10→21:55)
[2022-03-23 18:11] LABS: HEMOGLOBIN 5.8 g/dl (12.0-15.5)
[2022-03-23 18:19] LABS: INR 1.08; PROTHROMBIN TIME 14.4 SECONDS (12.7-14.5)
[2022-03-23] MEDS ORDERED: PANTOPRAZOLE 40MG VIAL IV ONE (18:25)
[2022-03-23] MEDS ORDERED: NS 1,000 ML IV ONE (18:25)
[2022-03-23 18:26] LABS: CALCIUM LEVEL 9.1 MG/DL (8.8-10.2); CREATININE FOR GFR 2.07 MG/DL (0.55-1.30); GLOMERULAR FILTRATION RATE 24.7 (>39); POTASSIUM SERUM 6.9 MEQ/L (3.5-5.1)
[2022-03-23 18:41] LABS: RSV AMPLIFICATION NEGATIVE (NEGATIVE)
[2022-03-23] MEDS ORDERED: DOPamine HCL 400 MG in IV 1 EA IV SCH ×2 (18:55→22:00)
[2022-03-23] MEDS ORDERED: DOPamine 400 MG/500 ML BAG IN D5W (800MCG/ML) (J1265) As Ordered ONE (18:57)
[2022-03-23] MEDS ORDERED: LIDOCAINE 1% MDV 20ML VIAL As Ordered ONE (19:23)
[2022-03-23] MEDS ORDERED: ATOR80TA59 PO (20:00)
[2022-03-23] MEDS ORDERED: CARV25TA PO (20:00)
[2022-03-23] MEDS ORDERED: LEVO112T2 PO (20:03)
[2022-03-23] MEDS ORDERED: CALC1CAP31 PO (20:03)
[2022-03-23] MEDS ORDERED: MAGN400T33 PO (20:03)
[2022-03-23] MEDS ORDERED: BUME1TAB3 PO ×2 (20:03)
[2022-03-23] MEDS ORDERED: AMLO1TAB25 PO (20:03)
[2022-03-23] MEDS ORDERED: MED REC COMMENT (20:04)
[2022-03-23] MEDS ORDERED: HOME MED LIST COMPLETE! XX SCH (20:05)
[2022-03-23] MEDS ORDERED: rOPINIRole 2MG TAB PO SCH (21:00)
[2022-03-23] MEDS ORDERED: GLUCAGON INJ 1MG VIAL SC PRN (21:10)
[2022-03-23] MEDS ORDERED: DEXTROSE 50% 50 ML SYRINGE IV PRN (21:10)
[2022-03-23] MEDS ORDERED: GLUCOSE 4GM CHEW TABLET PO PRN (21:10)
[2022-03-23] MEDS ORDERED: NS 1,000 ML IV SCH (21:20)
[2022-03-23 21:39] LABS: HEMATOCRIT 23.3 % (36.0-47.0); HEMOGLOBIN 7.1 g/dl (12.0-15.5)
[2022-03-23 22:12] LABS: CALCIUM LEVEL 9.9 MG/DL (8.8-10.2); CREATININE FOR GFR 2.07 MG/DL (0.55-1.30); GLOMERULAR FILTRATION RATE 24.7 (>39); MAGNESIUM LEVEL 2.4 MG/DL (1.8-2.4); POTASSIUM SERUM 5.6 MEQ/L (3.5-5.1)
[2022-03-23] MEDS ORDERED: fentaNYL 100 MCG/2 ML INJECTION IV ONE (23:00)
[2022-03-23] MEDS: PANTOPRAZOLE SODIUM 40 MG in D5W 50 ML IV SCH (23:11)
[2022-03-23] MEDS ORDERED: NOREPINEPHRINE BITARTRATE 8 MG in D5W 484 ML IV SCH (23:25)
[2022-03-23] MEDS ORDERED: NOREPINEPHRINE/DEXTROSE 8 MG in IV 1 EA IV SCH (23:35)
[2022-03-24] VITALS (52 sets, daily range): BP systolic 89–155; BP diastolic 50–88
[2022-03-24] MEDS ORDERED: NS 1,000 ML IV SCH (00:20)
[2022-03-24] MEDS ORDERED: SOD POLYSTYRENE SULFONATE SUSP 15GM 60ML UD PO ONE (01:00)
[2022-03-24] MEDS ORDERED: ACETAMINOPHEN TAB 650MG DOSE (2X325MG) PO PRN (01:10)
[2022-03-24] MEDS: HYDROMORPHONE HCL 0.5 MG/ 0.5 ML SYRINGE (J1170 PER 1) IV PRN ×2 (02:15→09:41)
[2022-03-24] MEDS: ANALGESIC BALM CRM 3OZ TOP SCH ×2 (02:28→20:47)
[2022-03-24] MEDS: PANTOPRAZOLE SODIUM 40 MG in D5W 50 ML IV SCH ×2 (02:33→07:39)
[2022-03-24 03:17] LABS: HEMATOCRIT 24.8 % (36.0-47.0); HEMOGLOBIN 7.9 g/dl (12.0-15.5)
[2022-03-24] MEDS: LEVOTHYROXINE 112MCG TABLET (0.112MG) PO SCH (05:44)
[2022-03-24 05:51] LABS: HEMATOCRIT 24.7 % (36.0-47.0); HEMOGLOBIN 7.8 g/dl (12.0-15.5)
[2022-03-24] MEDS: INSULIN LISPRO (NovoLOG) PER UNIT SC SCH ×6 (06:00→20:47)
[2022-03-24 06:14] LABS: CALCIUM LEVEL 9.2 MG/DL (8.8-10.2); CREATININE FOR GFR 2.04 MG/DL (0.55-1.30); GLOMERULAR FILTRATION RATE 25.1 (>39); MAGNESIUM LEVEL 2.2 MG/DL (1.8-2.4); POTASSIUM SERUM 4.9 MEQ/L (3.5-5.1)
[2022-03-24 08:37] LABS: HEMATOCRIT 25.6 % (36.0-47.0); HEMOGLOBIN 8.2 g/dl (12.0-15.5)
[2022-03-24] MEDS: HEPARIN SOD (PORCINE) 5000UNITS/ML 1ML VIAL/SYRINGE SC SCH ×2 (09:00→20:48)
[2022-03-24] MEDS ORDERED: PANTOPRAZOLE 40MG VIAL IV SCH (09:00)
[2022-03-24] MEDS ORDERED: NICOTINE 14 MG/24 HR TRANSDERMAL TD PRN (09:25)
[2022-03-24] MEDS ORDERED: FUROSEMIDE 20MG/2ML VIAL (J1940) IV ONE (10:00)
[2022-03-24] MEDS: ALBUTEROL SULFATE 2.5 MG/0.5 ML INH NEB SOLN NEB SCH ×2 (10:18→15:14)
[2022-03-24 15:15] LABS: HEMATOCRIT 25.5 % (36.0-47.0); HEMOGLOBIN 8.1 g/dl (12.0-15.5)
[2022-03-24] MEDS ORDERED: DEXTROSE 50% 50 ML SYRINGE IV PRN (15:25)
[2022-03-24] MEDS ORDERED: GLUCAGON INJ 1MG VIAL SC PRN (15:25)
[2022-03-24] MEDS ORDERED: GLUCOSE 4GM CHEW TABLET PO PRN (15:25)
[2022-03-24] MEDS: PANTOPRAZOLE 40MG VIAL IV SCH (20:48)
[2022-03-25] VITALS (22 sets, daily range): BP systolic 116–143; BP diastolic 56–97
[2022-03-25] MEDS: LEVOTHYROXINE 112MCG TABLET (0.112MG) PO SCH (05:53)
[2022-03-25 06:23] LABS: HEMATOCRIT 26.1 % (36.0-47.0); HEMOGLOBIN 8.1 g/dl (12.0-15.5); MEAN CORPUSCULAR HEMOGLOBIN 28.4 pg (27.0-33.0); MEAN CORPUSCULAR VOLUME 91.6 fl (80.0-96.0); PLATELET COUNT, AUTOMATED 187 10^3/uL (150-450); RED BLOOD COUNT 2.85 10^6/uL (4.00-5.40); WHITE BLOOD COUNT 8.1 10^3/uL (4.0-10.0)
[2022-03-25] MEDS: ALBUTEROL SULFATE 2.5 MG/0.5 ML INH NEB SOLN NEB SCH ×3 (07:14→15:24)
[2022-03-25] MEDS: INSULIN LISPRO (NovoLOG) PER UNIT SC SCH ×4 (07:30→21:15)
[2022-03-25 07:41] LABS: CALCIUM LEVEL 8.2 MG/DL (8.8-10.2); CREATININE FOR GFR 1.72 MG/DL (0.55-1.30); GLOMERULAR FILTRATION RATE 30.5 (>39); POTASSIUM SERUM 3.6 MEQ/L (3.5-5.1); THYROID STIMULATING HORMONE 1.7 uIU/ML (0.358-3.740)
[2022-03-25] MEDS: PANTOPRAZOLE 40MG VIAL IV SCH ×2 (08:37→21:15)
[2022-03-25] MEDS: ANALGESIC BALM CRM 3OZ TOP SCH ×2 (08:37→21:16)
[2022-03-25] MEDS ORDERED: NEOSPORIN OINT 0.9 GM PKT TOP ONE (12:40)
[2022-03-25] MEDS: HEPARIN SOD (PORCINE) 5000UNITS/ML 1ML VIAL/SYRINGE SC SCH ×2 (12:51→21:14)
[2022-03-26 00:08] VITALS: BP 136/63
[2022-03-26] MEDS: ALBUTEROL SULFATE 2.5 MG/0.5 ML INH NEB SOLN NEB SCH ×3 (00:49→15:20)
[2022-03-26] MEDS: SODIUM CHLORIDE NASAL 0.65% SPRAY BTL (OCEAN) PRN ×2 (02:07→04:11)
[2022-03-26 04:00] VITALS: BP 128/68
[2022-03-26] MEDS: LEVOTHYROXINE 112MCG TABLET (0.112MG) PO SCH (05:57)
[2022-03-26 06:23] LABS: HEMATOCRIT 26.1 % (36.0-47.0); HEMOGLOBIN 8.2 g/dl (12.0-15.5); MEAN CORPUSCULAR HEMOGLOBIN 28.5 pg (27.0-33.0); MEAN CORPUSCULAR HGB CONC 31.4 g/dl (32.0-36.5); MEAN CORPUSCULAR VOLUME 90.6 fl (80.0-96.0); PLATELET COUNT, AUTOMATED 202 10^3/uL (150-450); RED BLOOD COUNT 2.88 10^6/uL (4.00-5.40); WHITE BLOOD COUNT 8.9 10^3/uL (4.0-10.0)
[2022-03-26 06:57] LABS: CALCIUM LEVEL 8.4 MG/DL (8.8-10.2); CREATININE FOR GFR 1.42 MG/DL (0.55-1.30); GLOMERULAR FILTRATION RATE 38.1 (>39); POTASSIUM SERUM 3.7 MEQ/L (3.5-5.1)
[2022-03-26] MEDS ORDERED: LEVEMIR (INSULIN DETEMIR) 1 UNITS/0.01ML SC ONE (07:25)
[2022-03-26 08:00] VITALS: BP 137/61
[2022-03-26] MEDS: PANTOPRAZOLE 40MG VIAL IV SCH (08:25)
[2022-03-26] MEDS: ANALGESIC BALM CRM 3OZ TOP SCH ×2 (08:26→20:49)
[2022-03-26] MEDS: INSULIN LISPRO (NovoLOG) PER UNIT SC SCH ×4 (08:26→20:41)
[2022-03-26] MEDS: HEPARIN SOD (PORCINE) 5000UNITS/ML 1ML VIAL/SYRINGE SC SCH ×3 (08:26→20:49)
[2022-03-26] MEDS ORDERED: ATORVASTATIN 20 MG TAB PO SCH (09:00)
[2022-03-26] MEDS ORDERED: FUROSEMIDE 20 MG TAB PO ONE (10:00)
[2022-03-26 11:01] VITALS: BP 141/63
[2022-03-26 15:45] VITALS: BP 132/61
[2022-03-26] MEDS: PANTOPRAZOLE 40MG TAB (PROTONIX) PO SCH (20:48)
[2022-03-26] MEDS: ATORVASTATIN 20 MG TAB PO SCH (20:49)
[2022-03-26] MEDS ORDERED: LEVEMIR (INSULIN DETEMIR) 1 UNITS/0.01ML SC SCH (21:00)
[2022-03-27] MEDS: LEVOTHYROXINE 112MCG TABLET (0.112MG) PO SCH (05:36)
[2022-03-27] MEDS: HEPARIN SOD (PORCINE) 5000UNITS/ML 1ML VIAL/SYRINGE SC SCH ×3 (05:36→21:26)
[2022-03-27 05:42] VITALS: BP 135/63
[2022-03-27 07:22] LABS: HEMATOCRIT 30.8 % (36.0-47.0); HEMOGLOBIN 9.4 g/dl (12.0-15.5); MEAN CORPUSCULAR HEMOGLOBIN 28.2 pg (27.0-33.0); MEAN CORPUSCULAR HGB CONC 30.5 g/dl (32.0-36.5); MEAN CORPUSCULAR VOLUME 92.5 fl (80.0-96.0); PLATELET COUNT, AUTOMATED 217 10^3/uL (150-450); RED BLOOD COUNT 3.33 10^6/uL (4.00-5.40); WHITE BLOOD COUNT 9.9 10^3/uL (4.0-10.0)
[2022-03-27] MEDS: ALBUTEROL SULFATE 2.5 MG/0.5 ML INH NEB SOLN NEB SCH ×3 (07:41→16:34)
[2022-03-27 07:46] LABS: CALCIUM LEVEL 8.7 MG/DL (8.8-10.2); CREATININE FOR GFR 1.48 MG/DL (0.55-1.30); GLOMERULAR FILTRATION RATE 36.3 (>39); MAGNESIUM LEVEL 1.9 MG/DL (1.8-2.4); PHOSPHORUS LEVEL 2.5 MG/DL (2.5-4.9); POTASSIUM SERUM 4.5 MEQ/L (3.5-5.1)
[2022-03-27] MEDS: PANTOPRAZOLE 40MG TAB (PROTONIX) PO SCH ×2 (09:19→21:26)
[2022-03-27] MEDS: INSULIN LISPRO (NovoLOG) PER UNIT SC SCH ×4 (09:19→21:00)
[2022-03-27] MEDS: ANALGESIC BALM CRM 3OZ TOP SCH ×2 (09:20→21:27)
[2022-03-27] MEDS: LEVEMIR (INSULIN DETEMIR) 1 UNITS/0.01ML SC SCH (09:20)
[2022-03-27] MEDS: ATORVASTATIN 20 MG TAB PO SCH (21:27)
[2022-03-27] MEDS ORDERED: carisoprodoL 350 MG TAB PO ONE (21:40)
[2022-03-28] MEDS: LEVOTHYROXINE 112MCG TABLET (0.112MG) PO SCH (05:28)
[2022-03-28] MEDS: HEPARIN SOD (PORCINE) 5000UNITS/ML 1ML VIAL/SYRINGE SC SCH (05:29)
[2022-03-28 05:31] VITALS: BP 155/93
[2022-03-28 06:04] LABS: HEMOGLOBIN 9.1 g/dl (12.0-15.5); MEAN CORPUSCULAR HEMOGLOBIN 28.2 pg (27.0-33.0); MEAN CORPUSCULAR HGB CONC 30.3 g/dl (32.0-36.5); MEAN CORPUSCULAR VOLUME 92.9 fl (80.0-96.0); PLATELET COUNT, AUTOMATED 209 10^3/uL (150-450); RED BLOOD COUNT 3.23 10^6/uL (4.00-5.40); WHITE BLOOD COUNT 8.5 10^3/uL (4.0-10.0)
[2022-03-28 06:40] LABS: CALCIUM LEVEL 8.4 MG/DL (8.8-10.2); CREATININE FOR GFR 1.59 MG/DL (0.55-1.30); GLOMERULAR FILTRATION RATE 33.4 (>39); MAGNESIUM LEVEL 1.9 MG/DL (1.8-2.4); PHOSPHORUS LEVEL 3.5 MG/DL (2.5-4.9); POTASSIUM SERUM 4.5 MEQ/L (3.5-5.1)
[2022-03-28] MEDS: ALBUTEROL SULFATE 2.5 MG/0.5 ML INH NEB SOLN NEB SCH ×2 (07:51)
[2022-03-28] MEDS: PANTOPRAZOLE 40MG TAB (PROTONIX) PO SCH (09:01)
[2022-03-28] MEDS: INSULIN LISPRO (NovoLOG) PER UNIT SC SCH (09:02)
[2022-03-28] MEDS: LEVEMIR (INSULIN DETEMIR) 1 UNITS/0.01ML SC SCH (09:02)
[2022-03-28] MEDS: ANALGESIC BALM CRM 3OZ TOP SCH (09:03)
== END 2022-03-28 11:43 | disposition home or self-care (01) | DRG 228 ==
LOC: EDBD 17:43 → M ED 17:43 → M ICU 20:20 → M MS5PR 03-26 15:33
PROVIDERS: ADMIT Internal Medicine; ATTEND Internal Medicine
PROC: 02HK3NZ Insertion of Intracardiac Pacemaker into Right Ventricle, Percutaneous Approach (ICD-10-PCS; principal; 2022-03-23)
PROC: 30233N1 Transfusion of Nonautologous Red Blood Cells into Peripheral Vein, Percutaneous Approach (ICD-10-PCS; 2022-03-23)
PROC: 02HK3JZ Insertion of Pacemaker Lead into Right Ventricle, Percutaneous Approach (ICD-10-PCS; 2022-03-23)
PROC: 5A1223Z Performance of Cardiac Pacing, Continuous (ICD-10-PCS; 2022-03-23)
DX: R00.1 Bradycardia, unspecified (principal); J96.01 Acute respiratory failure with hypoxia; R57.0 Cardiogenic shock; I50.32 Chronic diastolic (congestive) heart failure; I13.0 Hypertensive heart and chronic kidney disease with heart failure and stage 1 through stage 4 chronic kidney disease, or unspecified chronic kidney disease; N17.9 Acute kidney failure, unspecified; D62 Acute posthemorrhagic anemia; E78.5 Hyperlipidemia, unspecified; E03.9 Hypothyroidism, unspecified; K21.9 Gastro-esophageal reflux disease without esophagitis; J44.9 Chronic obstructive pulmonary disease, unspecified; E11.22 Type 2 diabetes mellitus with diabetic chronic kidney disease; I25.10 Atherosclerotic heart disease of native coronary artery without angina pectoris; G25.81 Restless legs syndrome; F17.200 Nicotine dependence, unspecified, uncomplicated; D50.9 Iron deficiency anemia, unspecified; Z79.4 Long term (current) use of insulin; E87.5 Hyperkalemia; Z79.899 Other long term (current) drug therapy; Z88.8 Allergy status to other drugs, medicaments and biological substances; N18.30 Chronic kidney disease, stage 3 unspecified

== ENCOUNTER → 2022-04-09 | Outpatient (REF) | payer MEDICARE ==
[~2022-04-09] MED LIST changes: +AMLO1TAB25 PO; +ATOR80TA59 PO; +BUME1TAB3 PO; +CALC1CAP31 PO; +CARV25TA PO; +LEVO112T2 PO; +MAGN400T33 PO; +MED REC COMMENT
[2022-04-09 16:25] LABS: HEMATOCRIT 25.6 % (36.0-47.0); HEMOGLOBIN 7.7 g/dl (12.0-15.5); MEAN CORPUSCULAR HEMOGLOBIN 28.5 pg (27.0-33.0); MEAN CORPUSCULAR HGB CONC 30.1 g/dl (32.0-36.5); MEAN CORPUSCULAR VOLUME 94.8 fl (80.0-96.0); PLATELET COUNT, AUTOMATED 195 10^3/uL (150-450); WHITE BLOOD COUNT 4.3 10^3/uL (4.0-10.0)
[2022-04-09 16:49] LABS: ALBUMIN 2.7 GM/DL (3.2-5.2); BILIRUBIN,TOTAL 0.2 MG/DL (0.2-1.0); CALCIUM LEVEL 8.9 MG/DL (8.8-10.2); CREATININE FOR GFR 0.96 MG/DL (0.55-1.30); GLOMERULAR FILTRATION RATE 59.8 (>39); MAGNESIUM LEVEL 1.6 MG/DL (1.8-2.4); POTASSIUM SERUM 5.1 MEQ/L (3.5-5.1); TOTAL PROTEIN 6.2 GM/DL (6.4-8.2)
[2022-04-09 17:21] LABS: HEMOGLOBIN A1c 6.4 %
== END ==
LOC: M SFHCADAM 11:50
PROVIDERS: ATTEND Physician Assistant Medical
DX: I25.10 Atherosclerotic heart disease of native coronary artery without angina pectoris (principal); D50.9 Iron deficiency anemia, unspecified; E83.42 Hypomagnesemia; Z79.899 Other long term (current) drug therapy

== ENCOUNTER → 2022-04-22 | Outpatient (REF) | payer MEDICARE ==
[2022-04-22 13:29] LABS: HEMATOCRIT 25.8 % (36.0-47.0); HEMOGLOBIN 7.7 g/dl (12.0-15.5); MEAN CORPUSCULAR HEMOGLOBIN 27.4 pg (27.0-33.0); MEAN CORPUSCULAR HGB CONC 29.8 g/dl (32.0-36.5); MEAN CORPUSCULAR VOLUME 91.8 fl (80.0-96.0); PLATELET COUNT, AUTOMATED 211 10^3/uL (150-450); RED BLOOD COUNT 2.81 10^6/uL (4.00-5.40); WHITE BLOOD COUNT 7.3 10^3/uL (4.0-10.0)
== END ==
LOC: M SFHCADAM 10:57
PROVIDERS: ATTEND Physician Assistant Medical
DX: N18.32 Chronic kidney disease, stage 3b (principal); D63.8 Anemia in other chronic diseases classified elsewhere; E11.22 Type 2 diabetes mellitus with diabetic chronic kidney disease; E83.42 Hypomagnesemia

== ENCOUNTER 2022-08-07 11:25 | Outpatient (CLI) | payer MEDICARE ==
[2022-08-07] VITALS (10 sets, daily range): BP systolic 163–182; BP diastolic 82–95
[~2022-08-07] VITALS: Ht 152.4 cm; Wt 57.6 kg
== END 2022-08-07 18:00 | disposition home or self-care (01) ==
LOC: M OPCLIPED 11:25 → M PED 11:35 → M OPCLIPED 18:00
PROVIDERS: ATTEND Internal Medicine Nephrology
DX: D64.9 Anemia, unspecified (principal); Z88.2 Allergy status to sulfonamides
CPT/HCPCS: 36415; 86850; 86900; 86901; 86920; P9016

== ENCOUNTER → 2022-08-28 | Outpatient (REF) | payer MEDICARE ==
[2022-08-28 14:57] LABS: BASO # 0.1 10^3/uL (0.0-0.2); BASO % 0.7 % (0.0-1.0); EOS # 0.3 10^3/uL (0.0-0.5); EOS % 3.8 % (0.0-3.0); HEMATOCRIT 23.8 % (36.0-47.0); LYMPH % 12.5 % (24.0-44.0); MEAN CORPUSCULAR HGB CONC 29.4 g/dl (32.0-36.5); MEAN CORPUSCULAR VOLUME 81.5 fl (80.0-96.0); MONO # 0.7 10^3/uL (0.0-0.8); MONO % 8.5 % (2.0-8.0); NEUTROPHILS # 6.1 10^3/uL (1.5-8.5); NEUTROPHILS % 73.8 % (36.0-66.0); PLATELET COUNT, AUTOMATED 344 10^3/uL (150-450); RED BLOOD COUNT 2.92 10^6/uL (4.00-5.40); WHITE BLOOD COUNT 8.2 10^3/uL (4.0-10.0)
[2022-08-28 15:37] LABS: TOTAL IRON BINDING CAPACITY 384 UG/DL (250-425)
[2022-08-28 15:39] LABS: IRON (FE) 17 UG/DL (50-170); PERCENT SATURATION 4.4 % (13.2-45.0)
[2022-08-28 16:01] LABS: ALBUMIN 2.9 G/DL (3.2-5.2); ALKALINE PHOSPHATASE 186 U/L (46-116); ALT/SGPT 30 U/L (7.0-40); AST/SGOT 27 U/L (<34); BILIRUBIN,TOTAL 0.2 MG/DL (0.3-1.2); BLOOD UREA NITROGEN 59 MG/DL (9-23); CALCIUM LEVEL 8.9 MG/DL (8.3-10.6); CARBON DIOXIDE LEVEL 26 MMOL/L (20-31); CHLORIDE LEVEL 103 MMOL/L (98-107); CHOLESTEROL LEVEL 90 MG/DL (<200); CHOLESTEROL RISK RATIO 2.13 (<5); CREATININE FOR GFR 1.32 MG/DL (0.55-1.30); FOLATE > 24.0 NG/ML (>5.4); FREE T4 1.06 NG/DL (0.89-1.76); GLOMERULAR FILTRATION RATE 41.3 (>39); GLUCOSE, FASTING 180 MG/DL (74-106); HDL CHOLESTEROL 42.1 MG/DL (>40); MAGNESIUM LEVEL 1.6 MG/DL (1.8-2.4); NON-HDL-C 48 MG/DL; POTASSIUM SERUM 3.9 MMOL/L (3.5-5.1); SODIUM LEVEL 139 MMOL/L (136-145); THYROID STIMULATING HORMONE 2.618 uIU/ML (0.55-4.78); TOTAL 25(OH) VITAMIN D 37.6 NG/ML (20.0-100.0); VITAMIN B12 LEVEL 636 PG/ML (211-911)
[2022-08-28 16:18] LABS: HEMOGLOBIN A1c 7.6 % (4.0-6.0)
[2022-08-28 21:33] LABS: LDL CHOLESTEROL 22.7 MG/DL (<100); TOTAL PROTEIN 6.3 G/DL (5.7-8.2); TRIGLYCERIDES LEVEL 126 MG/DL (<150)
== END ==
LOC: M SFHCADAM 12:10
PROVIDERS: ATTEND Physician Assistant Medical
DX: E03.9 Hypothyroidism, unspecified (principal); E55.9 Vitamin D deficiency, unspecified; N18.32 Chronic kidney disease, stage 3b; D63.8 Anemia in other chronic diseases classified elsewhere; E11.22 Type 2 diabetes mellitus with diabetic chronic kidney disease; E83.42 Hypomagnesemia

== ENCOUNTER 2022-09-06 18:31 | Emergency (ER) | payer MEDICARE ==
[~2022-09-06] VITALS: Ht 149.9 cm; Wt 61.3 kg
[~2022-09-06 18:31] MED LIST changes: -ALLO100T; -BUME2TAB3; -PROC1INJ5; -SPIR-10
[2022-09-06] MEDS ORDERED: BUME2TAB3 (18:49)
[2022-09-06] MEDS ORDERED: ALLO100T (18:49)
[2022-09-06] MEDS ORDERED: SPIR-10 (18:49)
[2022-09-06] MEDS ORDERED: PROC1INJ5 (18:49)
[2022-09-06 19:45] LABS: BASO # 0.1 10^3/uL (0.0-0.2); BASO % 0.5 % (0.0-1.0); EOS # 0.3 10^3/uL (0.0-0.5); EOS % 3.5 % (0.0-3.0); HEMATOCRIT 21.8 % (36.0-47.0); LYMPH # 0.7 10^3/uL (1.5-5.0); LYMPH % 7.2 % (24.0-44.0); MEAN CORPUSCULAR HEMOGLOBIN 24.1 pg (27.0-33.0); MEAN CORPUSCULAR HGB CONC 29.4 g/dl (32.0-36.5); MONO # 0.7 10^3/uL (0.0-0.8); MONO % 7.3 % (2.0-8.0); NEUTROPHILS # 7.4 10^3/uL (1.5-8.5); NEUTROPHILS % 81.1 % (36.0-66.0); PLATELET COUNT, AUTOMATED 259 10^3/uL (150-450); RED BLOOD COUNT 2.66 10^6/uL (4.00-5.40); WHITE BLOOD COUNT 9.1 10^3/uL (4.0-10.0)
[2022-09-06 19:51] LABS: HEMOGLOBIN 6.4 g/dl (12.0-15.5)
[2022-09-06 19:54] LABS: INR 0.92; PROTHROMBIN TIME 12.6 SECONDS (12.5-14.5)
[2022-09-06 19:55] LABS: PARTIAL THROMBOPLASTIN TIME 20.1 SECONDS (24.8-34.2)
[2022-09-06 20:37] VITALS: BP 189/81
[2022-09-06 20:38] LABS: ALBUMIN 2.8 G/DL (3.2-5.2); ALKALINE PHOSPHATASE 168 U/L (46-116); ALT/SGPT 33 U/L (7.0-40); AST/SGOT 57 U/L (<34); BILIRUBIN,TOTAL < 0.2 MG/DL (0.3-1.2); BLOOD UREA NITROGEN 53 MG/DL (9-23); CALCIUM LEVEL 8.9 MG/DL (8.3-10.6); CARBON DIOXIDE LEVEL 25 MMOL/L (20-31); CHLORIDE LEVEL 104 MMOL/L (98-107); CREATININE FOR GFR 1.29 MG/DL (0.55-1.30); GLOMERULAR FILTRATION RATE 42.4 (>39); GLUCOSE, FASTING 295 MG/DL (74-106); POTASSIUM SERUM 5.1 MMOL/L (3.5-5.1); SODIUM LEVEL 136 MMOL/L (136-145); TOTAL PROTEIN 6.3 G/DL (5.7-8.2)
[2022-09-06 21:02] VITALS: BP 171/84
[2022-09-06 21:41] LABS: MAGNESIUM LEVEL 1.7 MG/DL (1.8-2.4)
[2022-09-07 00:24] LABS: HEMATOCRIT 26.8 % (36.0-47.0); MEAN CORPUSCULAR HEMOGLOBIN 24.5 pg (27.0-33.0); MEAN CORPUSCULAR HGB CONC 29.9 g/dl (32.0-36.5); PLATELET COUNT, AUTOMATED 261 10^3/uL (150-450); RED BLOOD COUNT 3.27 10^6/uL (4.00-5.40)
[2022-09-07 00:45] VITALS: BP 167/82
== END 2022-09-07 01:16 | disposition home or self-care (01) ==
LOC: M ED 18:31
DX: D64.9 Anemia, unspecified (principal); E11.9 Type 2 diabetes mellitus without complications; I10 Essential (primary) hypertension; N18.9 Chronic kidney disease, unspecified; K21.9 Gastro-esophageal reflux disease without esophagitis; I25.2 Old myocardial infarction; F17.200 Nicotine dependence, unspecified, uncomplicated; Z86.79 Personal history of other diseases of the circulatory system; Z79.4 Long term (current) use of insulin; Z88.2 Allergy status to sulfonamides; Z79.810 Long term (current) use of selective estrogen receptor modulators (SERMs); Z79.02 Long term (current) use of antithrombotics/antiplatelets; Z79.899 Other long term (current) drug therapy
CPT/HCPCS: 36415; 36430; 80053; 83735; 85025; 85027; 85610; 85730; 86850; 86900; 86901; 86920; 99285; P9016

== ENCOUNTER → 2022-09-06 | Outpatient (REF) | payer MEDICARE ==
[~2022-09-06] MED LIST changes: +ALLO100T; +BUME2TAB3; +PROC1INJ5; +SPIR-10
[2022-09-06 13:39] LABS: HEMATOCRIT 21.8 % (36.0-47.0); MEAN CORPUSCULAR HEMOGLOBIN 23.9 pg (27.0-33.0); MEAN CORPUSCULAR HGB CONC 28.9 g/dl (32.0-36.5); MEAN CORPUSCULAR VOLUME 82.6 fl (80.0-96.0); PLATELET COUNT, AUTOMATED 267 10^3/uL (150-450); RED BLOOD COUNT 2.64 10^6/uL (4.00-5.40)
[2022-09-06 14:16] LABS: HEMOGLOBIN 6.3 g/dl (12.0-15.5)
== END ==
LOC: M SFHCADAM 10:21
PROVIDERS: ATTEND Physician Assistant Medical
DX: D50.9 Iron deficiency anemia, unspecified (principal)

== ENCOUNTER → 2022-09-11 | Outpatient (REF) | payer MEDICARE ==
[~2022-09-11] MED LIST changes: +ALLO100T; +BUME2TAB3; +PROC1INJ5; +SPIR-10
[2022-09-11 14:24] LABS: HEMATOCRIT 26.2 % (36.0-47.0); HEMOGLOBIN 7.7 g/dl (12.0-15.5); MEAN CORPUSCULAR HEMOGLOBIN 25.1 pg (27.0-33.0); MEAN CORPUSCULAR HGB CONC 29.4 g/dl (32.0-36.5); MEAN CORPUSCULAR VOLUME 85.3 fl (80.0-96.0); PLATELET COUNT, AUTOMATED 218 10^3/uL (150-450); RED BLOOD COUNT 3.07 10^6/uL (4.00-5.40); WHITE BLOOD COUNT 9.6 10^3/uL (4.0-10.0)
== END ==
LOC: M SFHCADAM 10:36
PROVIDERS: ATTEND Physician Assistant Medical
DX: D50.9 Iron deficiency anemia, unspecified (principal)

== ENCOUNTER → 2022-09-19 | Outpatient (REF) | payer MEDICARE ==
[2022-09-19 18:03] LABS: POTASSIUM SERUM 4.8 MMOL/L (3.5-5.1)
[2022-09-19 18:12] LABS: PERCENT SATURATION 4.1 % (13.2-45.0)
== END ==
LOC: M LAB REF 17:12
PROVIDERS: ATTEND Nurse Practitioner Family
DX: D50.9 Iron deficiency anemia, unspecified (principal); N18.32 Chronic kidney disease, stage 3b; I50.42 Chronic combined systolic (congestive) and diastolic (congestive) heart failure; E87.1 Hypo-osmolality and hyponatremia

== ENCOUNTER 2022-09-30 08:27 | Outpatient (CLI) | payer MEDICARE ==
[~2022-09-30] VITALS: Ht 149.9 cm; Wt 61.3 kg
[~2022-09-30 08:27] MED LIST changes: +ALBUTEROL SULFATE 2.5MG/0.5ML INH NEB SOLN INH PRN; +EPINEPHrine INJ 1 MG/ML 1ML AMP IM PRN; +diphenhydrAMINE 50MG/ML VIAL IV PRN; +methylPREDNISolone 125MG 2ML VIAL IV PRN
[2022-09-30 08:40] VITALS: BP 148/62
[2022-09-30] MEDS ORDERED: IRON SUCROSE 500 MG in NS 250 ML OVER 4 HRS IV ONE (09:00)
[2022-09-30] MEDS ORDERED: NS 1,000 ML IV SCH (09:00)
[2022-09-30 11:00] VITALS: BP 177/77
[2022-09-30 12:00] VITALS: BP 170/102
[2022-09-30 12:57] VITALS: BP 181/86
[2022-09-30 13:55] VITALS: BP 176/76
== END 2022-09-30 14:00 | disposition home or self-care (01) ==
LOC: M INFU 08:27
PROVIDERS: ATTEND Internal Medicine Nephrology
DX: E61.1 Iron deficiency (principal); Z88.2 Allergy status to sulfonamides
CPT/HCPCS: 96365; 96366; J1756

== ENCOUNTER 2022-10-15 08:35 | Outpatient (CLI) | payer MEDICARE ==
[~2022-10-15] VITALS: Ht 149.9 cm; Wt 61.3 kg
[2022-10-15 08:49] VITALS: BP 166/80
[2022-10-15] MEDS ORDERED: NS 1,000 ML IV SCH (09:30)
[2022-10-15] MEDS ORDERED: IRON SUCROSE 500 MG in NS 250 ML OVER 4 HRS IV ONE (09:30)
[2022-10-15 10:19] VITALS: BP 171/83
[2022-10-15 11:30] VITALS: BP 164/70
[2022-10-15 12:30] VITALS: BP 176/88
[2022-10-15 13:45] VITALS: BP 160/74
== END 2022-10-15 13:45 | disposition home or self-care (01) ==
LOC: M INFU 08:35
PROVIDERS: ATTEND Internal Medicine Nephrology
DX: E61.1 Iron deficiency (principal); Z88.2 Allergy status to sulfonamides
CPT/HCPCS: 96365; 96366; J1756

== ENCOUNTER → 2022-12-31 | Outpatient (REF) | payer MEDICARE ==
[~2022-12-31] MED LIST changes: -ALBUTEROL SULFATE 2.5MG/0.5ML INH NEB SOLN INH PRN; -EPINEPHrine INJ 1 MG/ML 1ML AMP IM PRN; -diphenhydrAMINE 50MG/ML VIAL IV PRN; -methylPREDNISolone 125MG 2ML VIAL IV PRN
[2022-12-31 14:16] LABS: BASO # 0.1 10^3/uL (0.0-0.2); BASO % 0.8 % (0.0-1.0); EOS # 0.4 10^3/uL (0.0-0.5); EOS % 4.3 % (0.0-3.0); HEMATOCRIT 29.8 % (36.0-47.0); HEMOGLOBIN 9.1 g/dl (12.0-15.5); LYMPH # 1.2 10^3/uL (1.5-5.0); LYMPH % 12.1 % (24.0-44.0); MEAN CORPUSCULAR HEMOGLOBIN 30.4 pg (27.0-33.0); MEAN CORPUSCULAR HGB CONC 30.5 g/dl (32.0-36.5); MEAN CORPUSCULAR VOLUME 99.7 fl (80.0-96.0); MONO # 0.6 10^3/uL (0.0-0.8); MONO % 6.7 % (2.0-8.0); NEUTROPHILS # 7.3 10^3/uL (1.5-8.5); NEUTROPHILS % 75.6 % (36.0-66.0); PLATELET COUNT, AUTOMATED 293 10^3/uL (150-450); RED BLOOD COUNT 2.99 10^6/uL (4.00-5.40); WHITE BLOOD COUNT 9.6 10^3/uL (4.0-10.0)
[2022-12-31 14:50] LABS: ALBUMIN 3.1 G/DL (3.2-5.2); BILIRUBIN,TOTAL 0.2 MG/DL (0.3-1.2); CALCIUM LEVEL 9.6 MG/DL (8.3-10.6); CHOLESTEROL RISK RATIO 2.92 (<5); CREATININE FOR GFR 1.95 MG/DL (0.55-1.30); FERRITIN 51.6 NG/ML (7.3-270.7); GLOMERULAR FILTRATION RATE 26.3 (>39); HDL CHOLESTEROL 32.8 MG/DL (>40); LDL CHOLESTEROL 21.4 MG/DL (<100); NON-HDL-C 63.2 MG/DL; PERCENT SATURATION 80.2 % (13.2-45.0); POTASSIUM SERUM 5.6 MMOL/L (3.5-5.1); THYROID STIMULATING HORMONE 3.054 uIU/ML (0.55-4.78); TOTAL 25(OH) VITAMIN D 43.3 NG/ML (20.0-100.0); TOTAL PROTEIN 6.5 G/DL (5.7-8.2)
[2022-12-31 14:59] LABS: HEMOGLOBIN A1c 7.5 % (4.0-6.0)
[2022-12-31 15:46] LABS: CREATININE, URINE 36.7 MG/DL
[2022-12-31 15:58] LABS: MAU/CREAT RATIO 1389.6 MCG/MG (0.0-30.0)
== END ==
LOC: M SFHCADAM 11:36
PROVIDERS: ATTEND Physician Assistant Medical
DX: E11.22 Type 2 diabetes mellitus with diabetic chronic kidney disease (principal); E03.9 Hypothyroidism, unspecified; D50.9 Iron deficiency anemia, unspecified; E55.9 Vitamin D deficiency, unspecified; N18.32 Chronic kidney disease, stage 3b

== ENCOUNTER → 2023-01-08 | Outpatient (REF) | payer MEDICARE | LOC: M SFHCADAM 11:04 | PROVIDERS: ATTEND Physician Assistant Medical | DX: E11.22 Type 2 diabetes mellitus with diabetic chronic kidney disease (principal); E03.9 Hypothyroidism, unspecified; D50.9 Iron deficiency anemia, unspecified; E55.9 Vitamin D deficiency, unspecified ==

== ENCOUNTER → 2023-03-28 | Outpatient (REF) | payer MEDICARE ==
[2023-03-28 18:54] LABS: PERCENT SATURATION 21.4 % (13.2-45.0)
[2023-03-28 18:58] LABS: FERRITIN 25.1 NG/ML (7.3-270.7)
== END ==
LOC: M LAB REF 17:02
PROVIDERS: ATTEND Nurse Practitioner Family
DX: D50.9 Iron deficiency anemia, unspecified (principal)

== ENCOUNTER → 2023-08-12 | Outpatient (REF) | payer MEDICARE ==
[2023-08-12 18:56] LABS: PERCENT SATURATION 29.2 % (13.2-45.0)
[2023-08-12 18:58] LABS: FERRITIN 18.2 NG/ML (7.3-270.7)
== END ==
LOC: M LAB REF 17:23
PROVIDERS: ATTEND Nurse Practitioner Family
DX: D50.9 Iron deficiency anemia, unspecified (principal)

== ENCOUNTER → 2023-12-10 | Outpatient (REF) | payer MEDICARE ==
[2023-12-10 14:01] LABS: CHOLESTEROL RISK RATIO 1.79 (<5); HDL CHOLESTEROL 35.6 MG/DL (>40); LDL CHOLESTEROL 16.4 MG/DL (<100); NON-HDL-C 28.4 MG/DL
[2023-12-10 14:03] LABS: THYROID STIMULATING HORMONE 0.244 uIU/ML (0.55-4.78)
== END ==
LOC: M SFHCADAM 10:55
PROVIDERS: ATTEND Physician Assistant Medical
DX: E11.22 Type 2 diabetes mellitus with diabetic chronic kidney disease (principal); E03.9 Hypothyroidism, unspecified; I25.10 Atherosclerotic heart disease of native coronary artery without angina pectoris; I77.9 Disorder of arteries and arterioles, unspecified

== ENCOUNTER → 2024-01-13 | Outpatient (REF) | payer MEDICARE ==
[2024-01-13 18:18] LABS: PERCENT SATURATION 22.9 % (13.2-45.0)
[2024-01-13 18:21] LABS: FERRITIN 21.4 NG/ML (7.3-270.7)
== END ==
LOC: M LAB REF 17:03
PROVIDERS: ATTEND Nurse Practitioner Family
DX: D50.9 Iron deficiency anemia, unspecified (principal)

== ENCOUNTER → 2024-01-13 | Outpatient (REF) | payer MEDICARE ==
[2024-01-13 18:47] LABS: THYROID STIMULATING HORMONE 0.741 uIU/ML (0.55-4.78)
== END ==
LOC: M SFHCADAM 14:32
PROVIDERS: ATTEND Physician Assistant Medical
DX: E03.9 Hypothyroidism, unspecified (principal)

== ENCOUNTER 2024-03-27 22:34 | Observation (INO) | payer MEDICARE ==
[~2024-03-27] VITALS: Ht 152.4 cm; Wt 64.2 kg
[~2024-03-27 22:34] MED LIST changes: -ALLO100T; +ALLO100T PO; -PROC1INJ5; +PROC1INJ5 INJ; -SPIR-10
[2024-03-27 23:30] LABS: BASO % 0.2 % (0.0-1.0); HEMATOCRIT 36.2 % (36.0-47.0); HEMOGLOBIN 11.4 g/dl (12.0-15.5); LYMPH # 0.3 10^3/uL (1.5-5.0); LYMPH % 3.4 % (24.0-44.0); MEAN CORPUSCULAR HEMOGLOBIN 28.9 pg (27.0-33.0); MEAN CORPUSCULAR HGB CONC 31.5 g/dl (32.0-36.5); MEAN CORPUSCULAR VOLUME 91.6 fl (80.0-96.0); MONO # 0.3 10^3/uL (0.0-0.8); MONO % 3.1 % (2.0-8.0); NEUTROPHILS # 8.5 10^3/uL (1.5-8.5); PLATELET COUNT, AUTOMATED 235 10^3/uL (150-450); RED BLOOD COUNT 3.95 10^6/uL (4.00-5.40); VENOUS BASE EXCESS 2.4 (-2.0-2.0); VENOUS HCO3 26.3 MMOL/L (23.0-27.0); VENOUS O2 SATURATION 90.4 % (60.0-80.0); VENOUS PARTIAL PRESSURE CO2 38.5 mmHg (38.0-50.0); VENOUS PARTIAL PRESSURE O2 59.3 mmHg (30.0-50.0); VENOUS PH 7.453 UNITS (7.330-7.430); VENOUS STANDARD HCO3 26.4 MMOL/L; VENOUS TOTAL CO2 27.5 MMOL/L (24.0-28.0); WHITE BLOOD COUNT 9.1 10^3/uL (4.0-10.0)
[2024-03-27 23:46] LABS: INR 1.01; PARTIAL THROMBOPLASTIN TIME 27.5 SECONDS (24.8-34.2)
[2024-03-28 00:03] LABS: THYROID STIMULATING HORMONE 0.666 uIU/ML (0.55-4.78)
[2024-03-28 00:06] LABS: BLOOD UREA NITROGEN 50 MG/DL (9-23); CALCIUM LEVEL 8.5 MG/DL (8.3-10.6); CARBON DIOXIDE LEVEL 28 MMOL/L (20-31); CHLORIDE LEVEL 110 MMOL/L (98-107); CREATININE FOR GFR 1.29 MG/DL (0.55-1.30); GLOMERULAR FILTRATION RATE 42.3 (>32); GLUCOSE, FASTING 59 MG/DL (74-106); MAGNESIUM LEVEL 1.8 MG/DL (1.8-2.4); POTASSIUM SERUM 4.6 MMOL/L (3.5-5.1); SODIUM LEVEL 144 MMOL/L (136-145)
[2024-03-28] MEDS ORDERED: MOM 30ML SUSPENSION UDC PO PRN (03:05)
[2024-03-28] MEDS ORDERED: DEXTROSE 50% 50ML SYRINGE IV PRN (03:05)
[2024-03-28] MEDS ORDERED: MAALOX 30 ML SUSP *UDC PO PRN (03:05)
[2024-03-28] MEDS ORDERED: GLUCOSE 4 GM CHEW PO PRN (03:05)
[2024-03-28] MEDS ORDERED: ACETAMINOPHEN TAB 650MG DOSE (2X325MG) PO PRN (03:05)
[2024-03-28] MEDS ORDERED: GLUCAGON INJ 1MG VIAL SC PRN (03:05)
[2024-03-28 04:09] LABS: ALBUMIN 2.4 G/DL (3.2-5.2); ALKALINE PHOSPHATASE 272 U/L (46-116); ALT/SGPT 57 U/L (7.0-40); AST/SGOT 81 U/L (<34); BILIRUBIN,DIRECT < 0.1 MG/DL (<0.4); BILIRUBIN,TOTAL 0.2 MG/DL (0.3-1.2); TOTAL PROTEIN 6.1 G/DL (5.7-8.2)
[2024-03-28] MEDS: LR 1,000 ML IV SCH (04:38)
[2024-03-28 04:57] VITALS: BP 158/70; TEMP 97.3; O2SAT 97
[2024-03-28] MEDS ORDERED: [UNRECOGNIZED DRUG - CODE] INJ (07:02)
[2024-03-28] MEDS ORDERED: METO1TAB87 PO (07:02)
[2024-03-28] MEDS ORDERED: SODI650T PO (07:02)
[2024-03-28] MEDS ORDERED: MULTTAB61 PO (07:02)
[2024-03-28] MEDS ORDERED: HYDR-161 PO (07:02)
[2024-03-28] MEDS ORDERED: BUME1TAB3 PO (07:02)
[2024-03-28] MEDS ORDERED: LEVO100T5 PO (07:02)
[2024-03-28] MEDS ORDERED: HOME MED LIST COMPLETE! XX SCH (07:05)
[2024-03-28] MEDS: INSULIN LISPRO (NovoLOG) PER UNIT SC SCH ×2 (07:30→21:00)
[2024-03-28 08:00] VITALS: BP 156/68; TEMP 97.9; O2SAT 96
[2024-03-28] MEDS: DOCUSATE SODIUM 100MG CAPSULE PO SCH (08:01)
[2024-03-28] MEDS: HEPARIN SOD (PORCINE) 5000UNITS/ML 1ML VIAL/SYRINGE SC SCH (08:01)
[2024-03-28 12:00] VITALS: BP 138/64; TEMP 97.5; O2SAT 95
[2024-03-28 16:00] VITALS: BP 153/82; TEMP 96.7; O2SAT 96
[2024-03-28 20:16] VITALS: BP 139/66; TEMP 97.2; O2SAT 95
[2024-03-29] VITALS (9 sets, daily range): BP systolic 121–153; BP diastolic 65–80; TEMP 97.3–97.9; O2SAT 86–95
[2024-03-29 06:09] LABS: HEMATOCRIT 29.6 % (36.0-47.0); MEAN CORPUSCULAR HEMOGLOBIN 28.8 pg (27.0-33.0); MEAN CORPUSCULAR HGB CONC 30.7 g/dl (32.0-36.5); MEAN CORPUSCULAR VOLUME 93.7 fl (80.0-96.0); PLATELET COUNT, AUTOMATED 170 10^3/uL (150-450); RED BLOOD COUNT 3.16 10^6/uL (4.00-5.40); WHITE BLOOD COUNT 5.7 10^3/uL (4.0-10.0)
[2024-03-29 06:12] LABS: HEMOGLOBIN 9.1 g/dl (12.0-15.5)
[2024-03-29 06:26] LABS: ALBUMIN 1.8 G/DL (3.2-5.2); ALKALINE PHOSPHATASE 213 U/L (46-116); ALT/SGPT 44 U/L (7.0-40); AST/SGOT 45 U/L (<34); BILIRUBIN,TOTAL < 0.2 MG/DL (0.3-1.2); BLOOD UREA NITROGEN 50 MG/DL (9-23); CALCIUM LEVEL 7.8 MG/DL (8.3-10.6); CARBON DIOXIDE LEVEL 27 MMOL/L (20-31); CHLORIDE LEVEL 111 MMOL/L (98-107); CREATININE FOR GFR 1.82 MG/DL (0.55-1.30); GLOMERULAR FILTRATION RATE 28.5 (>32); GLUCOSE, FASTING 105 MG/DL (74-106); MAGNESIUM LEVEL 1.7 MG/DL (1.8-2.4); POTASSIUM SERUM 4.1 MMOL/L (3.5-5.1); SODIUM LEVEL 143 MMOL/L (136-145); TOTAL PROTEIN 4.8 G/DL (5.7-8.2)
[2024-03-29] MEDS: LEVOTHYROXINE 100MCG TABLET (0.1MG) PO SCH (07:45)
[2024-03-29] MEDS: BUMETANIDE 1 MG TAB PO SCH (09:00)
[2024-03-29] MEDS: SPIRONOLACTONE 25 MG TAB PO SCH (09:00)
[2024-03-29] MEDS: SODIUM BICARBONATE 325 MG TAB PO SCH (10:43)
[2024-03-29] MEDS: METOPROLOL TART 25 MG TABLET PO SCH (10:43)
[2024-03-29] MEDS: PANTOPRAZOLE 40MG TAB (PROTONIX) PO SCH (10:44)
[2024-03-29] MEDS: ATORVASTATIN 20 MG TAB PO SCH (10:44)
[2024-03-29] MEDS: allopurinoL 100 MG TAB PO SCH (10:44)
[2024-03-29] MEDS: **hydrALAZINE** 10 MG TAB PO SCH (10:45)
[2024-03-29] MEDS: MAGNESIUM OXIDE 400MG TAB (MAG-OX) PO SCH (10:45)
[2024-03-29] MEDS: MAG SULF 1GM/100ML (MAG RUN) 1 GM in IV 1 EA IV SCH (12:24)
[2024-03-29 17:38] LABS: CALCIUM LEVEL 7.7 MG/DL (8.3-10.6); CREATININE FOR GFR 1.99 MG/DL (0.55-1.30); GLOMERULAR FILTRATION RATE 25.7 (>32); MAGNESIUM LEVEL 2.3 MG/DL (1.8-2.4); POTASSIUM SERUM 4.2 MMOL/L (3.5-5.1)
[2024-03-29] MEDS: NS 1,000 ML IV ONE (18:17)
[2024-03-29] MEDS ORDERED: BUMETANIDE 1 MG TAB PO SCH (21:00)
[2024-03-30] VITALS (10 sets, daily range): BP systolic 127–152; BP diastolic 59–77; TEMP 97.3–97.9; O2SAT 91–95
[2024-03-30 06:43] LABS: CALCIUM LEVEL 7.5 MG/DL (8.3-10.6); CREATININE FOR GFR 1.65 MG/DL (0.55-1.30); GLOMERULAR FILTRATION RATE 31.9 (>32); POTASSIUM SERUM 3.8 MMOL/L (3.5-5.1)
[2024-03-30 07:42] LABS: BASO % 0.4 % (0.0-1.0); EOS # 0.1 10^3/uL (0.0-0.5); EOS % 1.4 % (0.0-3.0); HEMATOCRIT 29.6 % (36.0-47.0); LYMPH # 0.8 10^3/uL (1.5-5.0); LYMPH % 11.7 % (24.0-44.0); MEAN CORPUSCULAR HEMOGLOBIN 28.4 pg (27.0-33.0); MEAN CORPUSCULAR HGB CONC 30.4 g/dl (32.0-36.5); MEAN CORPUSCULAR VOLUME 93.4 fl (80.0-96.0); MONO # 0.5 10^3/uL (0.0-0.8); MONO % 7.2 % (2.0-8.0); NEUTROPHILS # 5.6 10^3/uL (1.5-8.5); NEUTROPHILS % 78.9 % (36.0-66.0); PLATELET COUNT, AUTOMATED 163 10^3/uL (150-450); RED BLOOD COUNT 3.17 10^6/uL (4.00-5.40); WHITE BLOOD COUNT 7.1 10^3/uL (4.0-10.0)
[2024-03-30] MEDS ORDERED: BUMETANIDE 1 MG TAB PO SCH (09:00)
[2024-03-30] MEDS: NS 1,000 ML IV SCH (09:38)
[2024-03-30] MEDS: EPOETIN ALFA 4000 UNIT/ML SC ONE (11:54)
[2024-03-30] MEDS: PROCRIT SC ONE (11:54)
[2024-03-30] MEDS: FLUTICASONE PROP 0.05% NASAL SPRAY 16 GM (FLONASE) NARES SCH (17:10)
[2024-03-31] VITALS: BP 149/75; TEMP 97.5; O2SAT 95
[2024-03-31 04:00] VITALS: BP 153/73; TEMP 97.3; O2SAT 94
[2024-03-31 06:42] LABS: CALCIUM LEVEL 7.8 MG/DL (8.3-10.6); CREATININE FOR GFR 1.55 MG/DL (0.55-1.30); GLOMERULAR FILTRATION RATE 34.2 (>32); POTASSIUM SERUM 3.9 MMOL/L (3.5-5.1)
[2024-03-31 08:00] VITALS: BP 143/76; TEMP 97.7; O2SAT 92
[2024-03-31] MEDS ORDERED: PILL CUTTER 1 EACH XX ONE (08:54)
[2024-03-31] MEDS: BUMETANIDE 1 MG TAB PO SCH (09:04)
[2024-03-31 09:07] VITALS: BP 143/76
[2024-03-31 12:00] VITALS: BP 136/58; TEMP 97; O2SAT 94
== END 2024-03-31 14:59 | disposition home or self-care (01) ==
LOC: M ED 22:34 → M ED INP 03-28 03:02 → INTOOBSV 03-28 03:02 → M MSPAV 03-28 04:45
PROVIDERS: ADMIT Family Medicine; ATTEND Student in an Organized Health Care Education/Training Program
DX: R55 Syncope and collapse (principal); E11.649 Type 2 diabetes mellitus with hypoglycemia without coma; I10 Essential (primary) hypertension; I25.10 Atherosclerotic heart disease of native coronary artery without angina pectoris; I25.2 Old myocardial infarction; M51.36 Other intervertebral disc degeneration, lumbar region; K57.30 Diverticulosis of large intestine without perforation or abscess without bleeding; M17.12 Unilateral primary osteoarthritis, left knee; Z87.891 Personal history of nicotine dependence; K44.9 Diaphragmatic hernia without obstruction or gangrene; Z79.899 Other long term (current) drug therapy; Z79.4 Long term (current) use of insulin; Z88.8 Allergy status to other drugs, medicaments and biological substances; K21.9 Gastro-esophageal reflux disease without esophagitis
CPT/HCPCS: 36415; 70450; 71045; 71046; 80048; 80053; 80076; 81001; 82803; 83605; 83735; 83880; 84443; 85025; 85027; 85610; 85730; 87086; 87486; 87581; 87633; 87798; 93005; 93041; 93306; 94760; 96361; 96372; 96374; 97116; 97161; 99285; G0378; J1815; J3475

== ENCOUNTER 2024-04-16 22:43 | Inpatient (IN) | payer MEDICARE ==
[~2024-04-16] VITALS: Ht 152.4 cm; Wt 79.0 kg
[2024-04-16] MEDS: LEVEMIR (INSULIN DETEMIR) 1 UNITS/0.01ML SC SCH (21:00)
[~2024-04-16 22:43] MED LIST changes: +HYDR-161 PO; +METO1TAB87 PO; +MULTTAB61 PO; +SODI650T PO; +[UNRECOGNIZED DRUG - CODE] INJ
[2024-04-17] MEDS: FUROSEMIDE 40MG/4ML VIAL IV ONE (00:41)
[2024-04-17 01:01] LABS: BASO % 0.2 % (0.0-1.0); EOS % 0.2 % (0.0-3.0); HEMATOCRIT 35.6 % (36.0-47.0); HEMOGLOBIN 11.2 g/dl (12.0-15.5); LYMPH # 0.6 10^3/uL (1.5-5.0); LYMPH % 3.3 % (24.0-44.0); MEAN CORPUSCULAR HEMOGLOBIN 28.1 pg (27.0-33.0); MEAN CORPUSCULAR HGB CONC 31.5 g/dl (32.0-36.5); MEAN CORPUSCULAR VOLUME 89.4 fl (80.0-96.0); MONO # 0.6 10^3/uL (0.0-0.8); MONO % 3.5 % (2.0-8.0); NEUTROPHILS # 15.9 10^3/uL (1.5-8.5); NEUTROPHILS % 91.8 % (36.0-66.0); PLATELET COUNT, AUTOMATED 448 10^3/uL (150-450); RED BLOOD COUNT 3.98 10^6/uL (4.00-5.40); WHITE BLOOD COUNT 17.3 10^3/uL (4.0-10.0)
[2024-04-17 01:04] LABS: CALCIUM LEVEL 7.3 MG/DL (8.3-10.6); CK-MB VALUE MASS 12.4 NG/ML (<3.6); CREATININE FOR GFR 2.42 MG/DL (0.55-1.30); GLOMERULAR FILTRATION RATE 20.5 (>32); MB/CK RELATIVE INDEX 3.52 (< OR =4); POTASSIUM SERUM 5.3 MMOL/L (3.5-5.1)
[2024-04-17] MEDS: DEXTROSE 50% 50ML SYRINGE IV STA (01:21)
[2024-04-17] MEDS ORDERED: DEXTROSE 50% 50ML SYRINGE As Ordered ONE (01:21)
[2024-04-17] MEDS: cefTRIAXone SOD 1 GM in DEXTROSE 5% (D5W) ADV/MINI-BAG 50 ML IV ONE (04:31)
[2024-04-17] MEDS: NYSTATIN 100,000 UNITS/GM TOPICAL PWD 15GM TOP ONE (05:00)
[2024-04-17] MEDS ORDERED: LR 1,000 ML IV SCH (05:05)
[2024-04-17] MEDS ORDERED: MOM 30ML SUSPENSION UDC PO PRN (05:05)
[2024-04-17] MEDS ORDERED: GLUCAGON INJ 1MG VIAL SC PRN (05:20)
[2024-04-17] MEDS ORDERED: DEXTROSE 50% 50ML SYRINGE IV PRN (05:20)
[2024-04-17] MEDS ORDERED: GLUCOSE 4 GM CHEW PO PRN (05:20)
[2024-04-17 05:35] LABS: PROCALCITONIN 2.47 ng/ml
[2024-04-17] MEDS ORDERED: MED REC IN PROGRESS XX SCH (05:35)
[2024-04-17] MEDS ORDERED: PATIROMER SORBITEX CALCIUM 8.4 GM POWDER PACKET (VELTASSA) PO ONE (06:00)
[2024-04-17 06:24] VITALS: BP 110/51; TEMP 97.5; O2SAT 94
[2024-04-17 06:46] LABS: INR 1.28; PROTHROMBIN TIME 15.6 SECONDS (12.5-14.5)
[2024-04-17] MEDS: metroNIDAZOLE 500 MG in IV 1 EA IV SCH (06:47)
[2024-04-17] MEDS: LR 1,000 ML IV SCH (06:47)
[2024-04-17] MEDS: SODIUM BICARBONATE 325 MG TAB PO SCH (06:50)
[2024-04-17 07:04] LABS: ALBUMIN 1.5 G/DL (3.2-5.2); ALKALINE PHOSPHATASE 349 U/L (46-116); ALT/SGPT 66 U/L (7.0-40); AST/SGOT 57 U/L (<34); BILIRUBIN,DIRECT < 0.1 MG/DL (<0.4); BILIRUBIN,TOTAL < 0.2 MG/DL (0.3-1.2); BLOOD UREA NITROGEN 73 MG/DL (9-23); CALCIUM LEVEL 7.4 MG/DL (8.3-10.6); CARBON DIOXIDE LEVEL 17 MMOL/L (20-31); CHLORIDE LEVEL 113 MMOL/L (98-107); CREATININE FOR GFR 2.47 MG/DL (0.55-1.30); GLUCOSE, FASTING 48 MG/DL (74-106); POTASSIUM SERUM 3.8 MMOL/L (3.5-5.1); SODIUM LEVEL 141 MMOL/L (136-145); TOTAL PROTEIN 4.8 G/DL (5.7-8.2)
[2024-04-17] MEDS: INSULIN LISPRO (NovoLOG) PER UNIT SC SCH ×2 (07:30→20:41)
[2024-04-17] MEDS: DOCUSATE SODIUM 100MG CAPSULE PO SCH (09:00)
[2024-04-17] MEDS ORDERED: **NOTE PATIENT COMMENT** MISC XX SCH (09:10)
[2024-04-17] MEDS: traMADol 50 MG TAB PO PRN (10:43)
[2024-04-17] MEDS ORDERED: ASPI81TA26 PO (11:17)
[2024-04-17] MEDS ORDERED: BUME2TAB3 PO (11:17)
[2024-04-17] MEDS ORDERED: MAGN400T2 PO (11:19)
[2024-04-17] MEDS ORDERED: HOME MED LIST COMPLETE! XX SCH (11:20)
[2024-04-17 12:00] VITALS: BP 127/49; TEMP 97; O2SAT 96
[2024-04-17] MEDS: LEVOTHYROXINE 100MCG TABLET (0.1MG) PO SCH (13:41)
[2024-04-17] MEDS: HEPARIN SOD (PORCINE) 5000UNITS/ML 1ML VIAL/SYRINGE SC SCH (13:41)
[2024-04-17] MEDS: ATORVASTATIN 20 MG TAB PO SCH (14:25)
[2024-04-17] MEDS: allopurinoL 100 MG TAB PO SCH (14:25)
[2024-04-17] MEDS: MAGNESIUM OXIDE 400MG TAB (MAG-OX) PO SCH (17:23)
[2024-04-17 19:55] VITALS: BP 110/70; TEMP 97.9; O2SAT 96
[2024-04-17] MEDS: CLOTRIMAZOLE 10 MG TROCHE PO SCH (21:00)
[2024-04-17] MEDS: METOPROLOL TART 25 MG TABLET PO SCH (21:00)
[2024-04-18] VITALS (7 sets, daily range): BP systolic 79–118; BP diastolic 50–65; TEMP 97–97.3; O2SAT 91–97
[2024-04-18] MEDS: cefTRIAXone SOD 1 GM in DEXTROSE 5% (D5W) ADV/MINI-BAG 50 ML IV SCH (05:15)
[2024-04-18 06:21] LABS: BASO % 0.1 % (0.0-1.0); EOS % 0.2 % (0.0-3.0); HEMATOCRIT 31.3 % (36.0-47.0); HEMOGLOBIN 9.6 g/dl (12.0-15.5); LYMPH # 0.7 10^3/uL (1.5-5.0); LYMPH % 4.1 % (24.0-44.0); MEAN CORPUSCULAR HEMOGLOBIN 27.3 pg (27.0-33.0); MEAN CORPUSCULAR HGB CONC 30.7 g/dl (32.0-36.5); MEAN CORPUSCULAR VOLUME 88.9 fl (80.0-96.0); MONO # 0.6 10^3/uL (0.0-0.8); MONO % 3.6 % (2.0-8.0); NEUTROPHILS # 15.2 10^3/uL (1.5-8.5); NEUTROPHILS % 91.4 % (36.0-66.0); PLATELET COUNT, AUTOMATED 380 10^3/uL (150-450); RED BLOOD COUNT 3.52 10^6/uL (4.00-5.40); WHITE BLOOD COUNT 16.7 10^3/uL (4.0-10.0)
[2024-04-18 06:45] LABS: CALCIUM LEVEL 7.3 MG/DL (8.3-10.6); CREATININE FOR GFR 2.42 MG/DL (0.55-1.30); GLOMERULAR FILTRATION RATE 20.5 (>32); POTASSIUM SERUM 4.3 MMOL/L (3.5-5.1)
[2024-04-19 04:01] VITALS: BP 98/70; TEMP 97; O2SAT 93
[2024-04-19 05:35] LABS: BASO % 0.1 % (0.0-1.0); EOS % 0.2 % (0.0-3.0); HEMATOCRIT 31.1 % (36.0-47.0); HEMOGLOBIN 9.6 g/dl (12.0-15.5); LYMPH # 0.7 10^3/uL (1.5-5.0); LYMPH % 4.8 % (24.0-44.0); MEAN CORPUSCULAR HEMOGLOBIN 27.4 pg (27.0-33.0); MEAN CORPUSCULAR HGB CONC 30.9 g/dl (32.0-36.5); MEAN CORPUSCULAR VOLUME 88.9 fl (80.0-96.0); MONO # 0.5 10^3/uL (0.0-0.8); MONO % 3.5 % (2.0-8.0); NEUTROPHILS # 12.6 10^3/uL (1.5-8.5); NEUTROPHILS % 90.6 % (36.0-66.0); PLATELET COUNT, AUTOMATED 389 10^3/uL (150-450)
[2024-04-19 06:10] LABS: ALBUMIN 1.6 G/DL (3.2-5.2); ALKALINE PHOSPHATASE 446 U/L (46-116); ALT/SGPT 63 U/L (7.0-40); AST/SGOT 51 U/L (<34); BILIRUBIN,TOTAL < 0.2 MG/DL (0.3-1.2); BLOOD UREA NITROGEN 78 MG/DL (9-23); CALCIUM LEVEL 7.6 MG/DL (8.3-10.6); CARBON DIOXIDE LEVEL 18 MMOL/L (20-31); CHLORIDE LEVEL 111 MMOL/L (98-107); CREATININE FOR GFR 2.47 MG/DL (0.55-1.30); GLUCOSE, FASTING 114 MG/DL (74-106); POTASSIUM SERUM 4.5 MMOL/L (3.5-5.1); SODIUM LEVEL 140 MMOL/L (136-145); TOTAL PROTEIN 4.4 G/DL (5.7-8.2)
[2024-04-19 10:56] VITALS: BP 100/69; TEMP 97.5; O2SAT 93
[2024-04-19 12:00] VITALS: BP 109/65; TEMP 97; O2SAT 92
[2024-04-19 13:00] VITALS: BP 131/70; TEMP 97; O2SAT 94
[2024-04-19 16:45] LABS: FREE T4 0.84 NG/DL (0.89-1.76); THYROID STIMULATING HORMONE 0.676 uIU/ML (0.55-4.78)
[2024-04-19] MEDS: metroNIDAZOLE (FLAGYL) 500MG TABLET PO SCH (16:51)
[2024-04-19 17:46] LABS: APPEARANCE, URINE CLOUDY (CLEAR); BACTERIA, URINE AUTO NEGATIVE (NEGATIVE); BILIRUBIN, URINE AUTO NEGATIVE (NEGATIVE); BLOOD, URINE BLOOD 3+ (NEGATIVE); COLOR, URINE AMBER (YELLOW); GLUCOSE, URINE (UA) AUTO NEGATIVE (NEGATIVE); KETONE, URINE AUTO NEGATIVE (NEGATIVE); LEUKOCYTE ESTERASE, URINE AUTO 3+ (NEGATIVE); MUCUS, URINE SMALL (NEGATIVE); NITRITE, URINE AUTO NEGATIVE (NEGATIVE); PROTEIN, URINE AUTO 1+ mg/dL (NEGATIVE); RBC, URINE AUTO TNTC /HPF (0-3); SPECIFIC GRAVITY URINE AUTO 1.017 (1.002-1.035); SQUAMOUS EPITHELIAL CELL UR AU 1 /HPF (0-6); UROBILINOGEN, URINE AUTO 0.2 mg/dL (0.0-2.0); WBC, URINE AUTO TNTC /HPF (0-3)
[2024-04-19 20:00] VITALS: BP 110/51; TEMP 97; O2SAT 96
[2024-04-19] MEDS: FUROSEMIDE IV SCH (20:07)
[2024-04-19] MEDS: D5W IV SCH (20:07)
[2024-04-20] VITALS (7 sets, daily range): BP systolic 91–143; BP diastolic 59–97; TEMP 97–97.2; O2SAT 92–98
[2024-04-20] MEDS: NORCO, ANEXSIA 5/325MG TABLET (HYDROcodone/ACETAMINOPHEN) PO ONE (02:58)
[2024-04-20 05:21] LABS: BASO % 0.1 % (0.0-1.0); EOS # 0.1 10^3/uL (0.0-0.5); EOS % 0.4 % (0.0-3.0); HEMOGLOBIN 9.2 g/dl (12.0-15.5); LYMPH # 0.8 10^3/uL (1.5-5.0); LYMPH % 5.5 % (24.0-44.0); MEAN CORPUSCULAR HEMOGLOBIN 27.6 pg (27.0-33.0); MEAN CORPUSCULAR HGB CONC 31.7 g/dl (32.0-36.5); MEAN CORPUSCULAR VOLUME 87.1 fl (80.0-96.0); MONO # 0.7 10^3/uL (0.0-0.8); MONO % 4.9 % (2.0-8.0); NEUTROPHILS # 12.6 10^3/uL (1.5-8.5); NEUTROPHILS % 88.3 % (36.0-66.0); PLATELET COUNT, AUTOMATED 374 10^3/uL (150-450); RED BLOOD COUNT 3.33 10^6/uL (4.00-5.40); WHITE BLOOD COUNT 14.3 10^3/uL (4.0-10.0)
[2024-04-20 05:46] LABS: CALCIUM LEVEL 7.6 MG/DL (8.3-10.6); CREATININE FOR GFR 2.43 MG/DL (0.55-1.30); GLOMERULAR FILTRATION RATE 20.4 (>32); POTASSIUM SERUM 4.7 MMOL/L (3.5-5.1)
[2024-04-20 05:47] LABS: ALBUMIN 1.7 G/DL (3.2-5.2); BILIRUBIN,TOTAL 0.2 MG/DL (0.3-1.2); CALCIUM LEVEL 7.8 MG/DL (8.3-10.6); CREATININE FOR GFR 2.44 MG/DL (0.55-1.30); GLOMERULAR FILTRATION RATE 20.3 (>32); POTASSIUM SERUM 4.7 MMOL/L (3.5-5.1); TOTAL PROTEIN 4.5 G/DL (5.7-8.2)
[2024-04-20] MEDS: CEFDINIR 300 MG CAP (OMNICEF) PO SCH (09:06)
[2024-04-20] MEDS: SANTYL OINT 30GM TOP SCH (09:07)
[2024-04-20] MEDS: FUROSEMIDE injection 250 MG in D5W 225 ML IV SCH (17:06)
[2024-04-21 04:00] VITALS: BP 140/67; TEMP 97.2; O2SAT 97
[2024-04-21 05:57] LABS: BASO % 0.2 % (0.0-1.0); EOS # 0.1 10^3/uL (0.0-0.5); EOS % 0.6 % (0.0-3.0); HEMATOCRIT 30.3 % (36.0-47.0); HEMOGLOBIN 9.5 g/dl (12.0-15.5); LYMPH # 0.8 10^3/uL (1.5-5.0); LYMPH % 4.9 % (24.0-44.0); MEAN CORPUSCULAR HEMOGLOBIN 28.1 pg (27.0-33.0); MEAN CORPUSCULAR HGB CONC 31.4 g/dl (32.0-36.5); MEAN CORPUSCULAR VOLUME 89.6 fl (80.0-96.0); MONO # 0.9 10^3/uL (0.0-0.8); NEUTROPHILS # 13.3 10^3/uL (1.5-8.5); NEUTROPHILS % 87.4 % (36.0-66.0); PLATELET COUNT, AUTOMATED 366 10^3/uL (150-450); RED BLOOD COUNT 3.38 10^6/uL (4.00-5.40); WHITE BLOOD COUNT 15.2 10^3/uL (4.0-10.0)
[2024-04-21 06:12] LABS: HEMOGLOBIN A1c 5.8 % (4.0-6.0)
[2024-04-21 06:26] LABS: ALBUMIN 1.6 G/DL (3.2-5.2); BILIRUBIN,TOTAL 0.2 MG/DL (0.3-1.2); CALCIUM LEVEL 7.9 MG/DL (8.3-10.6); CREATININE FOR GFR 2.54 MG/DL (0.55-1.30); GLOMERULAR FILTRATION RATE 19.4 (>32); POTASSIUM SERUM 4.8 MMOL/L (3.5-5.1); TOTAL PROTEIN 4.4 G/DL (5.7-8.2)
[2024-04-21 06:37] LABS: PROCALCITONIN 0.64 ng/ml
[2024-04-21 12:00] VITALS: BP 145/80; TEMP 97.7; O2SAT 97
[2024-04-21 20:40] VITALS: BP 143/80; TEMP 97; O2SAT 96
[2024-04-22 04:00] VITALS: BP 112/61; TEMP 97.2; O2SAT 95
[2024-04-22 05:39] LABS: BASO % 0.1 % (0.0-1.0); EOS # 0.1 10^3/uL (0.0-0.5); EOS % 0.7 % (0.0-3.0); HEMATOCRIT 28.2 % (36.0-47.0); HEMOGLOBIN 8.9 g/dl (12.0-15.5); LYMPH # 0.5 10^3/uL (1.5-5.0); LYMPH % 3.9 % (24.0-44.0); MEAN CORPUSCULAR HEMOGLOBIN 27.9 pg (27.0-33.0); MEAN CORPUSCULAR HGB CONC 31.6 g/dl (32.0-36.5); MEAN CORPUSCULAR VOLUME 88.4 fl (80.0-96.0); MONO # 0.9 10^3/uL (0.0-0.8); MONO % 6.7 % (2.0-8.0); NEUTROPHILS % 87.7 % (36.0-66.0); PLATELET COUNT, AUTOMATED 360 10^3/uL (150-450); RED BLOOD COUNT 3.19 10^6/uL (4.00-5.40); WHITE BLOOD COUNT 13.7 10^3/uL (4.0-10.0)
[2024-04-22 06:05] LABS: CREATININE FOR GFR 2.55 MG/DL (0.55-1.30); GLOMERULAR FILTRATION RATE 19.3 (>32); POTASSIUM SERUM 4.8 MMOL/L (3.5-5.1)
[2024-04-22 13:36] VITALS: BP 130/76
[2024-04-22] MEDS: metOLazone 5 MG TAB PO ONE (13:36)
[2024-04-22 13:46] VITALS: BP 142/76; TEMP 97.5; O2SAT 93
[2024-04-22 20:27] VITALS: BP 115/62; TEMP 97.5; O2SAT 92
[2024-04-23] VITALS (41 sets, daily range): BP systolic 72–132; BP diastolic 42–86; TEMP 96.8–98.3; O2SAT 92–99
[2024-04-23 05:40] LABS: BASO % 0.1 % (0.0-1.0); EOS % 0.2 % (0.0-3.0); HEMATOCRIT 23.5 % (36.0-47.0); HEMOGLOBIN 7.1 g/dl (12.0-15.5); LYMPH # 0.5 10^3/uL (1.5-5.0); LYMPH % 3.3 % (24.0-44.0); MEAN CORPUSCULAR HEMOGLOBIN 27.3 pg (27.0-33.0); MEAN CORPUSCULAR HGB CONC 30.2 g/dl (32.0-36.5); MEAN CORPUSCULAR VOLUME 90.4 fl (80.0-96.0); MONO # 0.5 10^3/uL (0.0-0.8); NEUTROPHILS # 14.3 10^3/uL (1.5-8.5); PLATELET COUNT, AUTOMATED 374 10^3/uL (150-450); WHITE BLOOD COUNT 15.5 10^3/uL (4.0-10.0)
[2024-04-23 07:47] LABS: ALBUMIN 1.3 G/DL (3.2-5.2); CALCIUM LEVEL 7.5 MG/DL (8.3-10.6); CREATININE FOR GFR 2.66 MG/DL (0.55-1.30); GLOMERULAR FILTRATION RATE 18.4 (>32); PHOSPHORUS LEVEL 4.7 MG/DL (2.4-5.1); POTASSIUM SERUM 5.4 MMOL/L (3.5-5.1)
[2024-04-23 08:28] LABS: MAGNESIUM LEVEL 2.6 MG/DL (1.8-2.4)
[2024-04-23 08:32] LABS: FERRITIN 78.2 NG/ML (7.3-270.7)
[2024-04-23] MEDS: CEFDINIR 300 MG CAP (OMNICEF) PO SCH (08:37)
[2024-04-23] MEDS: PANTOPRAZOLE 40MG TAB (PROTONIX) PO SCH (08:38)
[2024-04-23 09:45] LABS: HEMATOCRIT 22.2 % (36.0-47.0)
[2024-04-23 09:51] LABS: HEMOGLOBIN 6.8 g/dl (12.0-15.5)
[2024-04-23 13:27] LABS: HEMATOCRIT 23.2 % (36.0-47.0)
[2024-04-23 13:53] LABS: C REACTIVE PROTEIN QUANTITATIV 2.5 MG/DL (<1.0)
[2024-04-23 14:02] LABS: PROCALCITONIN 0.55 ng/ml
[2024-04-23] MEDS: metOLazone 5 MG TAB PO ONE (14:10)
[2024-04-23] MEDS: MIDODRINE 5 MG TAB PO ONE (14:45)
[2024-04-23 16:03] LABS: CALCIUM LEVEL 7.6 MG/DL (8.3-10.6); CREATININE FOR GFR 2.79 MG/DL (0.55-1.30); GLOMERULAR FILTRATION RATE 17.4 (>32); POTASSIUM SERUM 5.7 MMOL/L (3.5-5.1)
[2024-04-23] MEDS: DEXTROSE 50% 50ML SYRINGE IV STA (16:37)
[2024-04-23] MEDS: ALBUTEROL SULFATE 2.5MG/0.5ML INH NEB SOLN NEB ONE (16:37)
[2024-04-23] MEDS: HumuLIN R (REGULAR) INSULIN (NovoLIN R) **100U/ML** PER UNIT IV STA (16:50)
[2024-04-23] MEDS: NOREPINEPHRINE 4MG IN D5 250ML 4 MG in IV 1 EA IV SCH (18:07)
[2024-04-23] MEDS: D5W IV SCH (18:10)
[2024-04-23] MEDS: FUROSEMIDE IV SCH (18:10)
[2024-04-23 18:46] LABS: HEMATOCRIT 30.3 % (36.0-47.0)
[2024-04-23] MEDS: PATIROMER SORBITEX CALCIUM 8.4 GM POWDER PACKET (VELTASSA) PO ONE (18:46)
[2024-04-23 18:48] LABS: HEMOGLOBIN 9.6 g/dl (12.0-15.5)
[2024-04-24] VITALS (65 sets, daily range): BP systolic 69–133; BP diastolic 49–80; TEMP 97.1–98.3; O2SAT 92–99
[2024-04-24 04:06] LABS: BASO % 0.1 % (0.0-1.0); HEMATOCRIT 27.3 % (36.0-47.0); HEMOGLOBIN 8.9 g/dl (12.0-15.5); LYMPH # 0.9 10^3/uL (1.5-5.0); LYMPH % 4.4 % (24.0-44.0); MEAN CORPUSCULAR HEMOGLOBIN 28.9 pg (27.0-33.0); MEAN CORPUSCULAR HGB CONC 32.6 g/dl (32.0-36.5); MEAN CORPUSCULAR VOLUME 88.6 fl (80.0-96.0); MONO # 1.3 10^3/uL (0.0-0.8); MONO % 6.9 % (2.0-8.0); NEUTROPHILS # 16.7 10^3/uL (1.5-8.5); NEUTROPHILS % 87.1 % (36.0-66.0); PLATELET COUNT, AUTOMATED 354 10^3/uL (150-450); RED BLOOD COUNT 3.08 10^6/uL (4.00-5.40); WHITE BLOOD COUNT 19.2 10^3/uL (4.0-10.0)
[2024-04-24 04:38] LABS: ALBUMIN 1.4 G/DL (3.2-5.2); CALCIUM LEVEL 7.7 MG/DL (8.3-10.6); CREATININE FOR GFR 3.11 MG/DL (0.55-1.30); GLOMERULAR FILTRATION RATE 15.3 (>32); PHOSPHORUS LEVEL 4.7 MG/DL (2.4-5.1)
[2024-04-24 04:41] LABS: ALBUMIN 1.5 G/DL (3.2-5.2); BILIRUBIN,TOTAL 0.2 MG/DL (0.3-1.2); CREATININE FOR GFR 3.08 MG/DL (0.55-1.30); GLOMERULAR FILTRATION RATE 15.5 (>32); TOTAL PROTEIN 4.1 G/DL (5.7-8.2)
[2024-04-24] MEDS: MIDODRINE 5 MG TAB PO SCH (08:00)
[2024-04-24] MEDS: SODIUM BICARBONATE 325 MG TAB PO SCH (09:00)
[2024-04-24 19:44] LABS: CALCIUM LEVEL 8.1 MG/DL (8.3-10.6); CREATININE FOR GFR 3.29 MG/DL (0.55-1.30); GLOMERULAR FILTRATION RATE 14.4 (>32); POTASSIUM SERUM 4.4 MMOL/L (3.5-5.1)
[2024-04-25] VITALS (29 sets, daily range): BP systolic 99–144; BP diastolic 53–80; TEMP 96.4–97.9; O2SAT 94–99
[2024-04-25 04:41] LABS: BASO % 0.1 % (0.0-1.0); EOS % 0.2 % (0.0-3.0); LYMPH # 0.5 10^3/uL (1.5-5.0); LYMPH % 3.1 % (24.0-44.0); MEAN CORPUSCULAR HGB CONC 31.7 g/dl (32.0-36.5); MEAN CORPUSCULAR VOLUME 91.3 fl (80.0-96.0); MONO # 0.6 10^3/uL (0.0-0.8); MONO % 3.7 % (2.0-8.0); NEUTROPHILS # 16.2 10^3/uL (1.5-8.5); NEUTROPHILS % 92.2 % (36.0-66.0); PLATELET COUNT, AUTOMATED 219 10^3/uL (150-450); RED BLOOD COUNT 2.07 10^6/uL (4.00-5.40); WHITE BLOOD COUNT 17.5 10^3/uL (4.0-10.0)
[2024-04-25 04:48] LABS: HEMATOCRIT 18.9 % (36.0-47.0)
[2024-04-25 05:15] LABS: MAGNESIUM LEVEL 3.1 MG/DL (1.8-2.4); PHOSPHORUS LEVEL 4.7 MG/DL (2.4-5.1)
[2024-04-25 05:22] LABS: ALBUMIN 2.6 G/DL (3.2-5.2); BILIRUBIN,TOTAL 0.3 MG/DL (0.3-1.2); CALCIUM LEVEL 8.1 MG/DL (8.3-10.6); CREATININE FOR GFR 3.39 MG/DL (0.55-1.30); GLOMERULAR FILTRATION RATE 13.9 (>32); MAGNESIUM LEVEL 3.1 MG/DL (1.8-2.4); PHOSPHORUS LEVEL 4.8 MG/DL (2.4-5.1); POTASSIUM SERUM 4.3 MMOL/L (3.5-5.1); TOTAL PROTEIN 4.3 G/DL (5.7-8.2)
[2024-04-25] MEDS: ACETAMINOPHEN 325 MG TAB PO PRN (06:11)
[2024-04-25] MEDS: SUCRALFATE 1 GM TAB PO SCH (12:30)
[2024-04-25] MEDS: ACETAMINOPHEN *IV* 1,000 MG in IV 1 EA IV ONE (12:38)
[2024-04-25] MEDS: FERRIC CARBOXYMALTOSE INJ 750 MG, VIAL MATE ADAPTER 1 EACH in NS 100 ML IV ONE (16:54)
[2024-04-25] MEDS: SODIUM BICARBONATE 325 MG TAB PO SCH (16:59)
[2024-04-25] MEDS: SUCRALFATE SUSP 1GM/10ML UD PO SCH (17:26)
[2024-04-25 17:54] LABS: HEMATOCRIT 33.9 % (36.0-47.0); MEAN CORPUSCULAR HEMOGLOBIN 30.2 pg (27.0-33.0); MEAN CORPUSCULAR HGB CONC 33.6 g/dl (32.0-36.5); MEAN CORPUSCULAR VOLUME 89.9 fl (80.0-96.0); PLATELET COUNT, AUTOMATED 221 10^3/uL (150-450); RED BLOOD COUNT 3.77 10^6/uL (4.00-5.40); WHITE BLOOD COUNT 17.7 10^3/uL (4.0-10.0)
[2024-04-25 18:05] LABS: HEMOGLOBIN 11.4 g/dl (12.0-15.5)
[2024-04-25] MEDS ORDERED: GLUCOSE 4 GM CHEW PO PRN (19:15)
[2024-04-25] MEDS ORDERED: DEXTROSE 50% 50ML SYRINGE IV PRN (19:15)
[2024-04-25] MEDS ORDERED: GLUCAGON INJ 1MG VIAL SC PRN (19:15)
[2024-04-26] VITALS (23 sets, daily range): BP systolic 126–164; BP diastolic 60–79; TEMP 96.1–98.1; O2SAT 93–100
[2024-04-26] MEDS: INSULIN LISPRO (NovoLOG) PER UNIT SC SCH
[2024-04-26 06:13] LABS: BASO % 0.1 % (0.0-1.0); EOS % 0.1 % (0.0-3.0); HEMATOCRIT 29.2 % (36.0-47.0); HEMOGLOBIN 9.8 g/dl (12.0-15.5); LYMPH # 0.3 10^3/uL (1.5-5.0); LYMPH % 1.1 % (24.0-44.0); MEAN CORPUSCULAR HGB CONC 33.6 g/dl (32.0-36.5); MEAN CORPUSCULAR VOLUME 89.3 fl (80.0-96.0); MONO # 0.7 10^3/uL (0.0-0.8); MONO % 2.9 % (2.0-8.0); NEUTROPHILS # 21.7 10^3/uL (1.5-8.5); NEUTROPHILS % 95.1 % (36.0-66.0); PLATELET COUNT, AUTOMATED 178 10^3/uL (150-450); RED BLOOD COUNT 3.27 10^6/uL (4.00-5.40); WHITE BLOOD COUNT 22.9 10^3/uL (4.0-10.0)
[2024-04-26 06:31] LABS: C REACTIVE PROTEIN QUANTITATIV 2.1 MG/DL (<1.0)
[2024-04-26 06:32] LABS: ALBUMIN 3.5 G/DL (3.2-5.2); BILIRUBIN,TOTAL 0.8 MG/DL (0.3-1.2); CALCIUM LEVEL 8.6 MG/DL (8.3-10.6); CREATININE FOR GFR 3.29 MG/DL (0.55-1.30); GLOMERULAR FILTRATION RATE 14.4 (>32); POTASSIUM SERUM 3.7 MMOL/L (3.5-5.1); TOTAL PROTEIN 5.1 G/DL (5.7-8.2)
[2024-04-26] MEDS ORDERED: MEROPENEM INJ 2 GM in NS 100 ML IV SCH (07:05)
[2024-04-26] MEDS: MEROPENEM INJ 500 MG in IV 1 EA IV SCH (08:42)
[2024-04-26] MEDS: DARBEPOETIN 100MCG/0.5ML *NON-DIALYSIS* SYRINGE SC SCH (10:37)
[2024-04-26] MEDS: SUCRALFATE 1 GM TAB PO SCH (13:21)
[2024-04-26] MEDS: FLUCONAZOLE 100 MG TAB PO SCH (17:30)
[2024-04-27] VITALS (12 sets, daily range): BP systolic 131–155; BP diastolic 63–70; TEMP 97.6–99; O2SAT 92–98
[2024-04-27 06:53] LABS: BASO % 0.1 % (0.0-1.0); EOS # 0.1 10^3/uL (0.0-0.5); EOS % 0.3 % (0.0-3.0); HEMATOCRIT 28.5 % (36.0-47.0); HEMOGLOBIN 9.6 g/dl (12.0-15.5); LYMPH # 0.3 10^3/uL (1.5-5.0); LYMPH % 1.7 % (24.0-44.0); MEAN CORPUSCULAR HEMOGLOBIN 29.9 pg (27.0-33.0); MEAN CORPUSCULAR HGB CONC 33.7 g/dl (32.0-36.5); MEAN CORPUSCULAR VOLUME 88.8 fl (80.0-96.0); MONO # 0.6 10^3/uL (0.0-0.8); MONO % 3.2 % (2.0-8.0); NEUTROPHILS # 18.5 10^3/uL (1.5-8.5); NEUTROPHILS % 93.7 % (36.0-66.0); PLATELET COUNT, AUTOMATED 161 10^3/uL (150-450); RED BLOOD COUNT 3.21 10^6/uL (4.00-5.40); WHITE BLOOD COUNT 19.7 10^3/uL (4.0-10.0)
[2024-04-27 07:26] LABS: CALCIUM LEVEL 8.6 MG/DL (8.3-10.6); CREATININE FOR GFR 3.13 MG/DL (0.55-1.30); GLOMERULAR FILTRATION RATE 15.2 (>32); MAGNESIUM LEVEL 2.8 MG/DL (1.8-2.4); POTASSIUM SERUM 3.4 MMOL/L (3.5-5.1)
[2024-04-27] MEDS: FUROSEMIDE 100MG/10ML VIAL IV ONE (08:54)
[2024-04-27] MEDS: POTASSIUM CHLORIDE 10MEQ SR TABLET PO ONE (08:54)
[2024-04-28] VITALS (18 sets, daily range): BP systolic 92–137; BP diastolic 56–77; TEMP 97.4–98; O2SAT 92–100
[2024-04-28 06:38] LABS: BASO % 0.2 % (0.0-1.0); EOS # 0.1 10^3/uL (0.0-0.5); EOS % 0.8 % (0.0-3.0); HEMATOCRIT 31.3 % (36.0-47.0); HEMOGLOBIN 10.5 g/dl (12.0-15.5); LYMPH # 0.5 10^3/uL (1.5-5.0); LYMPH % 3.1 % (24.0-44.0); MEAN CORPUSCULAR HGB CONC 33.5 g/dl (32.0-36.5); MEAN CORPUSCULAR VOLUME 89.4 fl (80.0-96.0); MONO # 0.8 10^3/uL (0.0-0.8); MONO % 5.4 % (2.0-8.0); NEUTROPHILS # 13.4 10^3/uL (1.5-8.5); NEUTROPHILS % 89.6 % (36.0-66.0); PLATELET COUNT, AUTOMATED 164 10^3/uL (150-450)
[2024-04-28 07:03] LABS: CALCIUM LEVEL 8.2 MG/DL (8.3-10.6); CREATININE FOR GFR 2.93 MG/DL (0.55-1.30); GLOMERULAR FILTRATION RATE 16.4 (>32); MAGNESIUM LEVEL 2.6 MG/DL (1.8-2.4); POTASSIUM SERUM 3.1 MMOL/L (3.5-5.1)
[2024-04-28] MEDS: POTASSIUM CHLORIDE 10% LIQ 20MEQ/15ML UDC PO SCH (10:24)
[2024-04-28] MEDS: FUROSEMIDE 100MG/10ML VIAL IV ONE (15:00)
[2024-04-28] MEDS: POTASSIUM CHLORIDE 10MEQ SR TABLET PO ONE (17:54)
[2024-04-28] MEDS: SODIUM BICARBONATE 325 MG TAB PO SCH (22:15)
[2024-04-28] MEDS: HEPARIN SOD (PORCINE) 5000UNITS/ML 1ML VIAL/SYRINGE SQ SCH (22:16)
[2024-04-29 04:50] VITALS: BP 120/64; TEMP 97.9; O2SAT 96
[2024-04-29 05:32] LABS: BASO % 0.3 % (0.0-1.0); EOS # 0.2 10^3/uL (0.0-0.5); EOS % 1.5 % (0.0-3.0); HEMATOCRIT 31.2 % (36.0-47.0); LYMPH # 0.6 10^3/uL (1.5-5.0); LYMPH % 4.3 % (24.0-44.0); MEAN CORPUSCULAR HEMOGLOBIN 29.6 pg (27.0-33.0); MEAN CORPUSCULAR HGB CONC 32.1 g/dl (32.0-36.5); MEAN CORPUSCULAR VOLUME 92.3 fl (80.0-96.0); MONO # 1.1 10^3/uL (0.0-0.8); MONO % 7.9 % (2.0-8.0); NEUTROPHILS # 11.4 10^3/uL (1.5-8.5); NEUTROPHILS % 85.1 % (36.0-66.0); PLATELET COUNT, AUTOMATED 165 10^3/uL (150-450); RED BLOOD COUNT 3.38 10^6/uL (4.00-5.40); WHITE BLOOD COUNT 13.4 10^3/uL (4.0-10.0)
[2024-04-29 05:59] LABS: CALCIUM LEVEL 8.2 MG/DL (8.3-10.6); CREATININE FOR GFR 2.75 MG/DL (0.55-1.30); GLOMERULAR FILTRATION RATE 17.7 (>32); MAGNESIUM LEVEL 2.4 MG/DL (1.8-2.4); POTASSIUM SERUM 4.9 MMOL/L (3.5-5.1)
[2024-04-29 12:00] VITALS: BP 128/71; TEMP 97.9; O2SAT 95
[2024-04-29] MEDS: POTASSIUM CHLORIDE 10MEQ SR TABLET PO SCH (12:09)
[2024-04-29] MEDS: TORSEMIDE (DEMADEX) 50 MG PER 1/2 TAB PO SCH (13:55)
[2024-04-29] MEDS ORDERED: FLUCONAZOLE 50MG TABLET PO SCH (16:00)
[2024-04-29 17:22] VITALS: BP 125/70
[2024-04-29] MEDS: FLUCONAZOLE 100 MG TAB PO SCH (17:22)
[2024-04-29 20:10] VITALS: BP 123/70; TEMP 97.5; O2SAT 95
[2024-04-30 00:18] VITALS: BP 125/68; TEMP 100.3; O2SAT 97
[2024-04-30 01:57] VITALS: TEMP 100.1
[2024-04-30] MEDS: ACETAMINOPHEN *IV* 1,000 MG in IV 1 EA IV ONE (03:15)
[2024-04-30 04:20] VITALS: BP 128/81; TEMP 99.6; O2SAT 96
[2024-04-30 05:27] LABS: BASO # 0.1 10^3/uL (0.0-0.2); BASO % 0.5 % (0.0-1.0); EOS # 0.3 10^3/uL (0.0-0.5); EOS % 2.4 % (0.0-3.0); HEMATOCRIT 31.3 % (36.0-47.0); HEMOGLOBIN 9.9 g/dl (12.0-15.5); LYMPH # 0.6 10^3/uL (1.5-5.0); MEAN CORPUSCULAR HEMOGLOBIN 30.7 pg (27.0-33.0); MEAN CORPUSCULAR HGB CONC 31.6 g/dl (32.0-36.5); MEAN CORPUSCULAR VOLUME 96.9 fl (80.0-96.0); MONO % 9.5 % (2.0-8.0); NEUTROPHILS # 8.3 10^3/uL (1.5-8.5); NEUTROPHILS % 80.3 % (36.0-66.0); PLATELET COUNT, AUTOMATED 168 10^3/uL (150-450); RED BLOOD COUNT 3.23 10^6/uL (4.00-5.40); WHITE BLOOD COUNT 10.3 10^3/uL (4.0-10.0)
[2024-04-30 05:56] LABS: CALCIUM LEVEL 8.3 MG/DL (8.3-10.6); CREATININE FOR GFR 2.74 MG/DL (0.55-1.30); GLOMERULAR FILTRATION RATE 17.7 (>32); MAGNESIUM LEVEL 2.3 MG/DL (1.8-2.4); POTASSIUM SERUM 4.4 MMOL/L (3.5-5.1)
[2024-04-30 13:55] VITALS: BP 122/78; TEMP 97.7; O2SAT 98
[2024-05-01 03:22] VITALS: BP 131/79; TEMP 98.2; O2SAT 97
[2024-05-01 13:42] LABS: CALCIUM LEVEL 8.4 MG/DL (8.3-10.6); CREATININE FOR GFR 2.58 MG/DL (0.55-1.30); POTASSIUM SERUM 4.9 MMOL/L (3.5-5.1)
[2024-05-01 21:51] VITALS: BP 128/73; TEMP 98.2; O2SAT 94
[2024-05-02 04:20] VITALS: BP 129/74; TEMP 98.4; O2SAT 90
[2024-05-02 06:44] LABS: HEMATOCRIT 33.7 % (36.0-47.0); HEMOGLOBIN 10.2 g/dl (12.0-15.5); MEAN CORPUSCULAR HEMOGLOBIN 30.4 pg (27.0-33.0); MEAN CORPUSCULAR HGB CONC 30.3 g/dl (32.0-36.5); MEAN CORPUSCULAR VOLUME 100.6 fl (80.0-96.0); PLATELET COUNT, AUTOMATED 169 10^3/uL (150-450); RED BLOOD COUNT 3.35 10^6/uL (4.00-5.40)
[2024-05-02 06:59] LABS: ALBUMIN 2.6 G/DL (3.2-5.2); CALCIUM LEVEL 8.6 MG/DL (8.3-10.6); CREATININE FOR GFR 2.61 MG/DL (0.55-1.30); GLOMERULAR FILTRATION RATE 18.8 (>32); POTASSIUM SERUM 4.5 MMOL/L (3.5-5.1)
[2024-05-02 12:00] VITALS: BP 130/76; TEMP 98.8; O2SAT 92
[2024-05-02 20:37] VITALS: BP 131/75; TEMP 100.3; O2SAT 95
[2024-05-02 22:23] LABS: RSV AMPLIFICATION NEGATIVE (NEGATIVE)
[2024-05-03 04:12] VITALS: BP 141/92; TEMP 98.6; O2SAT 91
[2024-05-03 09:11] LABS: CALCIUM LEVEL 8.5 MG/DL (8.3-10.6); CREATININE FOR GFR 2.37 MG/DL (0.55-1.30); POTASSIUM SERUM 4.5 MMOL/L (3.5-5.1)
[2024-05-04 03:22] VITALS: BP 128/65; TEMP 99.3; O2SAT 90
[2024-05-05 04:00] VITALS: BP 119/60; TEMP 98.6; O2SAT 94
[2024-05-06 04:00] VITALS: BP 104/72; TEMP 98.1; O2SAT 97
[2024-05-07 04:00] VITALS: BP 118/75; TEMP 98.4; O2SAT 96
[2024-05-07] MEDS ORDERED: SANT250O8 TOP (07:31)
[2024-05-07] MEDS ORDERED: PROT1TAB2 PO (07:31)
[2024-05-07] MEDS ORDERED: CARA1TAB6 PO (07:31)
[2024-05-07] MEDS ORDERED: DRON2.5C11 PO (07:34)
[2024-05-07 09:44] LABS: BASO # 0.1 10^3/uL (0.0-0.2); BASO % 0.6 % (0.0-1.0); EOS # 0.2 10^3/uL (0.0-0.5); EOS % 2.3 % (0.0-3.0); HEMATOCRIT 33.1 % (36.0-47.0); HEMOGLOBIN 10.2 g/dl (12.0-15.5); LYMPH # 0.5 10^3/uL (1.5-5.0); LYMPH % 6.5 % (24.0-44.0); MEAN CORPUSCULAR HEMOGLOBIN 31.3 pg (27.0-33.0); MEAN CORPUSCULAR HGB CONC 30.8 g/dl (32.0-36.5); MEAN CORPUSCULAR VOLUME 101.5 fl (80.0-96.0); MONO # 0.4 10^3/uL (0.0-0.8); MONO % 5.4 % (2.0-8.0); NEUTROPHILS # 6.9 10^3/uL (1.5-8.5); NEUTROPHILS % 84.7 % (36.0-66.0); PLATELET COUNT, AUTOMATED 193 10^3/uL (150-450); RED BLOOD COUNT 3.26 10^6/uL (4.00-5.40); WHITE BLOOD COUNT 8.1 10^3/uL (4.0-10.0)
[2024-05-07 10:09] LABS: CALCIUM LEVEL 8.4 MG/DL (8.3-10.6); CREATININE FOR GFR 1.69 MG/DL (0.55-1.30); POTASSIUM SERUM 4.1 MMOL/L (3.5-5.1)
[2024-05-07] MEDS: FLUBLOK(EGGFREE) TRIVAL(24-25) VACCINE PF 0.5ML SYRINGE 18YRS & OLDER IM.IMMUN ONE (10:29)
== END 2024-05-07 11:52 | DRG 606 ==
LOC: M ED 22:43 → EDBD 22:43 → M ED INP 04-17 05:02 → M MSPAV 04-17 06:24 → M PCU 04-23 17:02 → M ICU 04-23 17:38 → M PCU 04-26 06:22 → M MSPAV 04-28 18:46
PROVIDERS: ADMIT Student in an Organized Health Care Education/Training Program; ATTEND General Practice
PROC: 02HV33Z Insertion of Infusion Device into Superior Vena Cava, Percutaneous Approach (ICD-10-PCS; principal; 2024-04-23)
PROC: 30233N1 Transfusion of Nonautologous Red Blood Cells into Peripheral Vein, Percutaneous Approach (ICD-10-PCS; 2024-04-23)
DX: L30.4 Erythema intertrigo (principal); I50.33 Acute on chronic diastolic (congestive) heart failure; N17.0 Acute kidney failure with tubular necrosis; K29.71 Gastritis, unspecified, with bleeding; I13.0 Hypertensive heart and chronic kidney disease with heart failure and stage 1 through stage 4 chronic kidney disease, or unspecified chronic kidney disease; R57.9 Shock, unspecified; D62 Acute posthemorrhagic anemia; N39.0 Urinary tract infection, site not specified; E87.0 Hyperosmolality and hypernatremia; L03.314 Cellulitis of groin; E87.20 Acidosis, unspecified; E78.5 Hyperlipidemia, unspecified; M48.061 Spinal stenosis, lumbar region without neurogenic claudication; N18.30 Chronic kidney disease, stage 3 unspecified; E03.9 Hypothyroidism, unspecified; E66.3 Overweight; I25.10 Atherosclerotic heart disease of native coronary artery without angina pectoris; M17.12 Unilateral primary osteoarthritis, left knee; E11.649 Type 2 diabetes mellitus with hypoglycemia without coma; K21.9 Gastro-esophageal reflux disease without esophagitis; I25.2 Old myocardial infarction; E11.22 Type 2 diabetes mellitus with diabetic chronic kidney disease; L89.152 Pressure ulcer of sacral region, stage 2; E87.5 Hyperkalemia; R00.1 Bradycardia, unspecified; E88.09 Other disorders of plasma-protein metabolism, not elsewhere classified; E83.41 Hypermagnesemia; K44.9 Diaphragmatic hernia without obstruction or gangrene; K57.90 Diverticulosis of intestine, part unspecified, without perforation or abscess without bleeding; Z79.899 Other long term (current) drug therapy; Z79.82 Long term (current) use of aspirin; Z88.8 Allergy status to other drugs, medicaments and biological substances

== ENCOUNTER 2024-07-13 13:40 | Inpatient (IN) | payer MEDICARE ==
[~2024-07-13] VITALS: Ht 157.5 cm; Wt 61.5 kg
[~2024-07-13 13:40] MED LIST changes: +ASPI81TA26 PO; +BUME2TAB3 PO; +CARA1TAB6 PO; +DRON2.5C11 PO; +MAGN400T2 PO; +PROT1TAB2 PO; +SANT250O8 TOP
[2024-07-13] MEDS: [UNRECOGNIZED DRUG - OTHER] IV ONE (14:14)
[2024-07-13] MEDS: NS 0.9% IV ONE (14:14)
[2024-07-13 14:33] LABS: HEMATOCRIT 43.2 % (36.0-47.0); HEMOGLOBIN 13.7 g/dl (12.0-15.5); MEAN CORPUSCULAR HEMOGLOBIN 31.9 pg (27.0-33.0); MEAN CORPUSCULAR HGB CONC 31.7 g/dl (32.0-36.5); MEAN CORPUSCULAR VOLUME 100.5 fl (80.0-96.0); PLATELET COUNT, AUTOMATED 310 10^3/uL (150-450); WHITE BLOOD COUNT 4.6 10^3/uL (4.0-10.0)
[2024-07-13] MEDS: CEFEPIME HCL 2 GM in DEXTROSE 5% (D5W) ADV/MINI-BAG 50 ML IV ONE (14:46)
[2024-07-13 14:47] LABS: APPEARANCE, URINE TURBID (CLEAR); BACTERIA, URINE AUTO NEGATIVE (NEGATIVE); BILIRUBIN, URINE AUTO NEGATIVE (NEGATIVE); BLOOD, URINE BLOOD 1+ (NEGATIVE); COLOR, URINE YELLOW (YELLOW); GLUCOSE, URINE (UA) AUTO NEGATIVE (NEGATIVE); KETONE, URINE AUTO NEGATIVE (NEGATIVE); LEUKOCYTE ESTERASE, URINE AUTO 3+ (NEGATIVE); MUCUS, URINE SMALL (NEGATIVE); NITRITE, URINE AUTO NEGATIVE (NEGATIVE); PROTEIN, URINE AUTO 2+ mg/dL (NEGATIVE); RBC, URINE AUTO 163 /HPF (0-3); SPECIFIC GRAVITY URINE AUTO 1.023 (1.002-1.035); SQUAMOUS EPITHELIAL CELL UR AU 5 /HPF (0-6); TRANSITIONAL EPITHELIAL AUTO 1 /HPF; UROBILINOGEN, URINE AUTO 0.2 mg/dL (0.0-2.0); WBC, URINE AUTO TNTC /HPF (0-3)
[2024-07-13 14:54] LABS: EOSINOPHILS 1 % (0-3); HYPOCHROMASIA 1+; LYMPHOCYTES 13 % (16-44); METAMYELOCYTES 1 % (0-0); MONOCYTES 1 % (0-5); NEUTROPHILS 57 % (28-66); PLATELET ESTIMATE NORMAL (NORMAL)
[2024-07-13 14:55] LABS: ANISOCYTOSIS 1+; POIKILOCYTOSIS 1+
[2024-07-13 15:08] LABS: C REACTIVE PROTEIN QUANTITATIV 3.87 MG/DL (<1.0)
[2024-07-13 15:20] LABS: PROCALCITONIN 42.39 ng/ml
[2024-07-13 15:21] LABS: ALBUMIN 1.1 G/DL (3.2-5.2); BILIRUBIN,DIRECT 0.1 MG/DL (<0.4); BILIRUBIN,TOTAL 0.2 MG/DL (0.3-1.2); CALCIUM LEVEL 6.1 MG/DL (8.3-10.6); CREATININE FOR GFR 2.55 MG/DL (0.55-1.30); GLOMERULAR FILTRATION RATE 19.2 (>32); POTASSIUM SERUM 3.3 MMOL/L (3.5-5.1); TOTAL PROTEIN 4.7 G/DL (5.7-8.2)
[2024-07-13 15:26] LABS: INR 2.12; PARTIAL THROMBOPLASTIN TIME 72.7 SECONDS (24.8-34.2); PROTHROMBIN TIME 23.8 SECONDS (12.5-14.5)
[2024-07-13] MEDS: KCL 10MEQ/100ML SWI (KRUN) 10 MEQ in IV 1 EA IV ONE (16:27)
[2024-07-13] MEDS: NOREPINEPHRINE 4MG IN D5 250ML 4 MG in IV 1 EA IV SCH (16:28)
[2024-07-13] MEDS ORDERED: VANCOMYCIN HCL 920 MG in IV FLUID PLACE HOLDER 1 EA IV ONE (16:35)
[2024-07-13] MEDS ORDERED: ALBUTEROL SULFATE 2.5MG/0.5ML INH NEB SOLN NEB PRN (16:40)
[2024-07-13] MEDS ORDERED: ACETAMINOPHEN *IV* 1,000 MG in IV 1 EA IV PRN (16:55)
[2024-07-13] MEDS ORDERED: VANCOMYCIN HCL 1,000 MG, VIAL MATE ADAPTER 1 EACH in NS 250 ML IV ONE (17:00)
[2024-07-13 17:32] VITALS: BP 132/56; TEMP 95.8; O2SAT 92
[2024-07-13] MEDS ORDERED: NOREPINEPHRINE 4MG IN D5 250ML 4 MG in IV 1 EA IV SCH (17:40)
[2024-07-13] MEDS ORDERED: LEVO125T4 PO (17:46)
[2024-07-13] MEDS ORDERED: PANT-23 PO (17:46)
[2024-07-13] MEDS ORDERED: BUME1TAB3 PO (17:46)
[2024-07-13] MEDS ORDERED: HOME MED LIST COMPLETE! XX SCH (17:50)
[2024-07-13] MEDS ORDERED: KCL 20MEQ IN 100ML SWI (KRUN) 20 MEQ in IV 1 EA IV ONE (18:00)
[2024-07-13] MEDS: LR 1,000 ML IV ONE (18:08)
[2024-07-13] MEDS ORDERED: ONDANSETRON 4MG 2ML VIAL IV PRN (18:10)
[2024-07-13] MEDS ORDERED: LORazepam 2 MG/ML 1ML VIAL IV PRN (18:10)
[2024-07-13] MEDS ORDERED: SCOPOLAMINE 1MG TRANSDERMAL PATCH TOP PRN (18:10)
[2024-07-13] MEDS: MORPHINE 2 MG/ML 1ML VIAL IV PRN (18:29)
[2024-07-13] MEDS ORDERED: PIPERACILLIN/TAZOBACTAM SOD 4.5 GM in DEXTROSE 5% (D5W) ADV/MINI-BAG 50 ML IV SCH (21:00)
== END 2024-07-13 23:45 | disposition expired | DRG 871 ==
LOC: M ED 13:40 → EDBD 13:40 → M ED INP 16:25 → M ICU 17:34
PROVIDERS: ADMIT Internal Medicine Pulmonary Disease; ATTEND Internal Medicine Pulmonary Disease
DX: A41.9 Sepsis, unspecified organism (principal); R65.21 Severe sepsis with septic shock; K65.9 Peritonitis, unspecified; K63.1 Perforation of intestine (nontraumatic); E87.20 Acidosis, unspecified; N17.9 Acute kidney failure, unspecified; I50.32 Chronic diastolic (congestive) heart failure; I13.0 Hypertensive heart and chronic kidney disease with heart failure and stage 1 through stage 4 chronic kidney disease, or unspecified chronic kidney disease; J90 Pleural effusion, not elsewhere classified; E87.6 Hypokalemia; I25.10 Atherosclerotic heart disease of native coronary artery without angina pectoris; E66.9 Obesity, unspecified; N18.30 Chronic kidney disease, stage 3 unspecified; Z79.899 Other long term (current) drug therapy; Z88.8 Allergy status to other drugs, medicaments and biological substances; E03.9 Hypothyroidism, unspecified; K57.90 Diverticulosis of intestine, part unspecified, without perforation or abscess without bleeding; M17.12 Unilateral primary osteoarthritis, left knee; E55.9 Vitamin D deficiency, unspecified; E78.5 Hyperlipidemia, unspecified; D50.9 Iron deficiency anemia, unspecified; K44.9 Diaphragmatic hernia without obstruction or gangrene; K21.9 Gastro-esophageal reflux disease without esophagitis; I25.2 Old myocardial infarction; Z87.891 Personal history of nicotine dependence; E11.22 Type 2 diabetes mellitus with diabetic chronic kidney disease; R19.7 Diarrhea, unspecified; R09.02 Hypoxemia; M48.061 Spinal stenosis, lumbar region without neurogenic claudication; R74.01 Elevation of levels of liver transaminase levels